=== PATIENT | female | born 1980 | race Hispanic/Latino ===

== ENCOUNTER 2019-01-30 17:42 | Emergency (ER) | payer BC, SELFPAY ==
[2019-01-30 19:39] LABS: Absolute Lymphocytes (CBC) 1.6 K/uL (0.7-4.9); Basophils % 0.3 % (0-1.3); Eosinophils % 0.2 % (0-4.4); Hematocrit 39.7 % (36.0-45.0); Lymphocytes % 18.3 % (15.3-44.8); Monocytes % 6.2 % (3.3-12.3); RBC Red Blood Cell Count 4.52 M/uL (3.86-4.86)
[2019-01-30 19:48] LABS: Urine Blood 2+ (NEG); Urine Glucose NEGATIVE (NEG); Urine Protein NEGATIVE (NEG); Urine Specific Gravity 1.015 (1.005-1.030); Urine pH 6.5 (5.0-7.0)
[2019-01-30 19:49] LABS: Barbiturates NEGATIVE (NEGATIVE); Benzodiazepines NEGATIVE (NEGATIVE); Cocaine NEGATIVE (NEGATIVE); METHAMPHETAM NEGATIVE (NEGATIVE); Methadone NEGATIVE (NEGATIVE); Opiates NEGATIVE (NEGATIVE); Phencyclidine NEGATIVE (NEGATIVE); THC Cannibis POSITIVE (NEGATIVE)
[2019-01-30 19:52] LABS: Protime INR 1.04
[2019-01-30 19:53] LABS: ALT/SGPT 22 U/L (12-78); AST/SGOT 14 U/L (15-37); Albumin 4.2 g/dL (3.4-5.0); Alkaline Phosphatase 63 U/L (45-117); BUN Blood Urea Nitrogen 11 mg/dL (7-18); Bicarbonate 25 mmol/L (21-32); Bilirubin Direct 0.1 mg/dL (0-0.2); Bilirubin Total 0.3 mg/dL (0.2-1.0); Glucose Level 103 mg/dL (74-106); Potassium 3.7 mmol/L (3.5-5.1); Protein, Total 8.4 g/dL (6.4-8.2); Sodium Level 140 mmol/L (136-145)
[2019-01-30] MEDS ORDERED: LORAZEPAM 1 MG TABLET ONE (20:19)
--- NOTE | 2019-01-30 20:28 | EDPHYS ---
Physician Documentation [facility] Name: Rosetta Aranda Age: 38 yrs Sex: Female : 1980 Arrival Date: 01/30/2019 Time: 17:45 Bed 16 Private MD: ED Physician Zack Mueller HPI: 01/30 18:26 This 38 yrs old Female presents to ER via Ambulatory with complaints of pm1 Weakness. 18:26 The patient presents to the emergency department with weakness of the entire body, pm1 generalized weakness. Onset: The symptoms/episode began/occurred 3 day(s) ago. Context: occurred at home, occurred while the patient was Increase in anxiety. Patient has stopped taking her medications for anxiety for the past two years and now for the past three days she feels that is unbearable and incapacitating . Associated signs and symptoms: Pertinent positives: bodyaches, Pertinent negatives: altered mental status, fever, headache, nausea, vomiting, diarrhea. Severity of symptoms: in the emergency department the symptoms are worse. Current symptoms: anxiety. The patient has experienced similar episodes in the past, chronically, but today's symptoms are worse. The patient has not recently seen a physician, stopped seeing her psychiatrist for two years. Patient symptoms resolve with the use of marijuana. Historical: - Allergies: 17:57 Trazodone; ss - PMHx: 17:57 Bipolar disorder; Fibromyalgia; Anxiety; ss - PSHx: 17:57 Tubal ligation; ss - Immunization history:: Adult Immunizations up to date. - Social history:: Smoking status: Patient/guardian denies using tobacco, Patient uses street drugs, marijuana. - Ebola Screening: : Patient denies exposure to infectious person Patient denies travel to an Ebola-affected area in the 21 days before illness onset. ROS: 18:26 Constitutional: Negative for fever, chills, and weight loss, Eyes: Negative for injury, pm1 pain, redness, and discharge, ENT: Negative for injury, pain, and discharge, Neck: Negative for injury, pain, and swelling, Cardiovascular: Negative for chest pain, palpitations, and edema, Respiratory: Negative for shortness of breath, cough, wheezing, and pleuritic chest pain, Abdomen/GI: Negative for abdominal pain, nausea, vomiting, diarrhea, and constipation, Back: Negative for injury and pain, : Negative for injury, bleeding, discharge, and swelling, MS/Extremity: Negative for injury and deformity, Skin: Negative for injury, rash, and discoloration, Neuro: Negative for headache, weakness, numbness, tingling, and seizure. 18:26 Psych: Positive for anxiety, Negative for drug dependence, alcohol dependence, auditory hallucinations, visual hallucinations, homicidal ideation, suicide gesture, suicidal ideation. Exam: 18:26 Constitutional: This is a well developed, well nourished patient who is awake, alert, pm1 and in no acute distress. Head/Face: Normocephalic, atraumatic. Eyes: Pupils equal round and reactive to light, extra-ocular motions intact. Lids and lashes normal. Conjunctiva and sclera are non-icteric and not injected. Cornea within normal limits. Periorbital areas with no swelling, redness, or edema. ENT: Nares patent. No nasal discharge, no septal abnormalities noted. Tympanic membranes are normal and external auditory canals are clear. Oropharynx with no redness, swelling, or masses, exudates, or evidence of obstruction, uvula midline. Mucous membranes moist. Neck: Trachea midline, no thyromegaly or masses palpated, and no cervical lymphadenopathy. Supple, full range of motion without nuchal rigidity, or vertebral point tenderness. No Meningismus. Chest/axilla: Normal chest wall appearance and motion. Nontender with no deformity. No lesions are appreciated. Cardiovascular: Regular rate and rhythm with a normal S1 and S2. No gallops, murmurs, or rubs. Normal PMI, no JVD. No pulse deficits. Respiratory: Lungs have equal breath sounds bilaterally, clear to auscultation and percussion. No rales, rhonchi or wheezes noted. No increased work of breathing, no retractions or nasal flaring. Abdomen/GI: Soft, non-tender, with normal bowel sounds. No distension or tympany. No guarding or rebound. No evidence of tenderness throughout. Back: No spinal tenderness. No costovertebral tenderness. Full range of motion. Skin: Warm, dry with normal turgor. Normal color with no rashes, no lesions, and no evidence of cellulitis. MS/ Extremity: Pulses equal, no cyanosis. Neurovascular intact. Full, normal range of motion. 18:26 Neuro: Orientation: is normal, Motor: is normal, moves all fours, Sensation: is normal, no obvious gross deficits. 18:26 Psych: Behavior/mood is anxious, Affect is animated, Oriented to person, place, time, Patient has no thoughts/intents to harm self or others. Delusions/hallucinations are not present. Vital Signs: 17:57 BP 155 / 91; Pulse 88; Resp 16; Temp 97.4(TE); Pulse Ox 100% on R/A; Weight 92.99 kg; ss Height 5 ft. 6 in. (167.64 cm); 19:30 BP 152 / 94; Pulse 76; Resp 18; Pulse Ox 97% on R/A; ea 20:30 BP 150 / 90; Pulse 78; Resp 18; Temp 97.8; Pulse Ox 98% on R/A; ea 17:57 Body Mass Index 33.09 (92.99 kg, 167.64 cm) ss MDM: 18:07 Patient medically screened. pm1 20:26 Data reviewed: vital signs. Data interpreted: Pulse oximetry: on room air is 97 %. pm1 Interpretation: normal. Counseling: I had a detailed discussion with the patient and/or guardian regarding: the historical points, exam findings, and any diagnostic results supporting the discharge/admit diagnosis, lab results, the need for outpatient follow up, for definitive care, a family practitioner, a psychiatrist, to return to the emergency department if symptoms worsen or persist or if there are any questions or concerns that arise at home. 01/30 18:25 Order name: Acetaminophen pm1 01/30 18:25 Order name: Basic Metabolic Panel; Complete Time: 19:55 pm01/30 18:25 Order name: CBC with Diff; Complete Time: 19:50 pm01/30 18:25 Order name: ETOH Level; Complete Time: 19:55 pm01/30 18:25 Order name: Hepatic Function; Complete Time: 19:55 pm01/30 18:25 Order name: PT-INR; Complete Time: 20:26 pm01/30 18:25 Order name: Ptt, Activated; Complete Time: 20:26 pm01/30 18:25 Order name: Salicylate; Complete Time: 19:55 pm01/30 18:25 Order name: Urine Drug Screen; Complete Time: 19:55 pm01/30 18:25 Order name: Flu; Complete Time: 20:26 pm1 01/30 18:26 Order name: Acetaminophen Level; Complete Time: 19:55 EDMS 01/30 19:34 Order name: Urine Dipstick--Ancillary (enter results); Complete Time: 19:50 mw2 01/30 19:34 Order name: Urine --Ancillary (enter results); Complete Time: 19:50 mw2 01/30 18:25 Order name: Urine Test (obtain specimen) pm1 01/30 18:25 Order name: EKG; Complete Time: 18:26 pm1 01/30 18:25 Order name: EKG - Nurse/Tech; Complete Time: 19:34 pm1 01/30 18:25 Order name: IV Saline Lock; Complete Time: 19:34 pm1 01/30 18:25 Order name: Labs collected and sent; Complete Time: 19:34 pm1 01/30 18:25 Order name: Urine Dipstick-Ancillary (obtain specimen); Complete Time: 19:34 pm1 Administered Medications: 20:08 Drug: Ativan 1 mg Route: PO; ea 20:30 Follow up: Response: Anxiety decreased ea Disposition: 01/30/19 20:27 Discharged to Home. Impression: Anxiety disorder, unspecified, Weakness. - Condition is Stable. - Discharge Instructions: Weakness, Generalized Anxiety Disorder. - Prescriptions for Valium 2 mg Oral Tablet - take 1 tablet by ORAL route every 8 hours As needed; 10 tablet. - Medication Reconciliation Form, Thank You Letter, Antibiotic Education, Prescription Opioid Use form. - Follow up: Emergency Department; When: As needed; Reason: Worsening of condition. Follow up: Private Physician; When: 2 - 3 days; Reason: Recheck today's complaints, Continuance of care, Re-evaluation by your physician. - Problem is new. - Symptoms have improved. Addendum: 02/01/2019 04:32 Co-signature as Attending Physician, Zack Mueller MD. g s Signatures: Dispatcher [employer] EDIL Karla Ramirez RN RN Rakesh Prieto, BRINDA PRIMARY EDUCATION PROFESSOR pm1 Payton Hough RN RN ea Starr, Gregory, MD MD gs Corrections: (The following items were deleted from the chart) 01/30 20:46 20:27 01/30/2019 20:27 Discharged to Home. Impression: Anxiety disorder, unspecified; ea Weakness. Condition is Stable. Forms are Medication Reconciliation Form, Thank You Letter, Antibiotic Education, Prescription Opioid Use. Follow up: Emergency Department; When: As needed; Reason: Worsening of condition. Follow up: Private Physician; When: 2 - 3 days; Reason: Recheck today's complaints, Continuance of care, Re-evaluation by your physician. Problem is new. Symptoms have improved. pm1
--- NOTE | 2019-01-30 20:28 | ER ---
Nurse's Notes [facility] Name: Rosetta Aranda Age: 38 yrs Sex: Female : 1980 Arrival Date: 01/30/2019 Time: 17:45 Bed 16 Private MD: Diagnosis: Anxiety disorder, unspecified;Weakness Presentation: 01/30 17:56 Presenting complaint: Patient states: Anxiety, chills and muscle weakness x 2-3 days. ss Pt reports symptoms became much worse today. Transition of care: patient was not received from another setting of care. Onset of symptoms is unknown. Risk Assessment: Do you want to hurt yourself or someone else? Patient reports no desire to harm self or others. Initial Sepsis Screen: Does the patient meet any 2 criteria? No. Patient's initial sepsis screen is negative. Does the patient have a suspected source of infection? No. Patient's initial sepsis screen is negative. Care prior to arrival: None. 17:56 Method Of Arrival: Ambulatory ss 17:56 Acuity: TYREE 3 ss Historical: - Allergies: 17:57 Trazodone; ss - PMHx: 17:57 Bipolar disorder; Fibromyalgia; Anxiety; ss - PSHx: 17:57 Tubal ligation; ss - Immunization history:: Adult Immunizations up to date. - Social history:: Smoking status: Patient/guardian denies using tobacco, Patient uses street drugs, marijuana. - Ebola Screening: : Patient denies exposure to infectious person Patient denies travel to an Ebola-affected area in the 21 days before illness onset. Screenin:35 Abuse screen: Denies threats or abuse. Nutritional screening: No deficits noted. ea Tuberculosis screening: No symptoms or risk factors identified. Fall Risk None identified. Assessment: 19:35 General: Appears in no apparent distress. Behavior is calm, cooperative, appropriate ea for age. Pain: Denies pain. Neuro: Level of Consciousness is awake, alert, obeys commands, Oriented to person, place, time, situation, Moves all extremities. Speech is normal, Pt reports generalized weakness. Cardiovascular: Patient's skin is warm and dry. Respiratory: Airway is patent Respiratory effort is even, unlabored, Respiratory pattern is regular, symmetrical, Breath sounds are clear bilaterally. GI: Abdomen is non-distended. Derm: Skin is pink, warm \T\ dry. 20:43 Reassessment: Patient and/or family updated on plan of care and expected duration. Pain ea level reassessed. Patient is alert, oriented x 3, equal unlabored respirations, skin warm/dry/pink. Discharge instruction given to patient, verbalized the understanding of instruction. Pt left ambulatory accompanied by significant other. Pt tolerating well Patient denies pain at this time. Patient states feeling better. Patient states symptoms have improved. Vital Signs: 17:57 BP 155 / 91; Pulse 88; Resp 16; Temp 97.4(TE); Pulse Ox 100% on R/A; Weight 92.99 kg; Height 5 ft. 6 in. (167.64 cm); 19:30 BP 152 / 94; Pulse 76; Resp 18; Pulse Ox 97% on R/A; ea 20:30 BP 150 / 90; Pulse 78; Resp 18; Temp 97.8; Pulse Ox 98% on R/A; ea 17:57 Body Mass Index 33.09 (92.99 kg, 167.64 cm) ED Course: 17:45 Patient arrived in ED. as 17:53 Paula Mir, RN is Primary Nurse. aj1 17:56 Triage completed. ss 17:57 Arm band placed on left wrist. ss 18:07 Rakesh Boo NP is PHCP. pm1 18:07 Zack Mueller MD is Attending Physician. pm1 19:34 EKG done, by ED staff. ea 19:35 Patient has correct armband on for positive identification. Bed in low position. Call ea light in reach. Side rails up X 1. 20:40 IV discontinued, intact, bleeding controlled, No redness/swelling at site. Pressure ea dressing applied. 20:44 No provider procedures requiring assistance completed. ea Administered Medications: 20:08 Drug: Ativan 1 mg Route: PO; ea 20:30 Follow up: Response: Anxiety decreased ea Outcome: 20:27 Discharge ordered by . pm1 20:45 Discharged to home ambulatory, with significant other. ea 20:45 Condition: improved 20:45 Discharge instructions given to patient, Instructed on discharge instructions, follow up and referral plans. medication usage, Demonstrated understanding of instructions, follow-up care, medications. 20:46 Patient left the ED. ea Signatures: Paula Mir, CELIA RN aj1 April Ibanez Shelby, RN RN ss Rakesh Boo, MAIL ORDER CLERK MAIL ORDER CLERK pm1 Payton Hough, RN RN ea
[2019-01-30 23:30] VITALS: BP 150/90; TEMP 97.8; O2SAT 98
--- NOTE | 2019-01-31 09:54 | EKG ---
Test Date: 2019-01-30 Test Time: 19:26:09 Director Search: JOSUE MEASUREMENT RESULTS: Intervals: Rate: 78 SD: 168 QRSD: 78 QT: 382 QTc: 435 [place]: P: 46 SD: 168 QRS: 4 T: 22 INTERPRETIVE STATEMENTS: Normal sinus rhythm Normal ECG Compared to ECG 05/25/2016 18:00:33 No significant changes Electronically Signed On 01-31-19 09:54:19 CDT by Ricardo Garcia
== END 2019-01-30 20:46 | disposition home or self-care (01) ==
LOC: ER 17:42
DX: F41.9 Anxiety disorder, unspecified (principal); F31.9 Bipolar disorder, unspecified; Z88.5 Allergy status to narcotic agent
CPT/HCPCS: 36415; 80048; 80076; 80307; 80320; 80329; 81003; 81025; 85025; 85610; 85730; 87804; 93005; 99283

== ENCOUNTER 2019-02-08 09:35 | Emergency (ER) | payer BC ==
[2019-02-08] MEDS ORDERED: cloNIDine HCl 0.1 MG TAB ONE (10:24)
--- NOTE | 2019-02-08 10:35 | RAD REPORT ---
EXAM DESCRIPTION: CT - Head Brain Wo Cont - 02/08/2019 10:16 am CLINICAL HISTORY: Dizziness, transient alteration of awareness COMPARISON: CT head May 2016 TECHNIQUE: Axial 5 mm thick images of the head were obtained without IV contrast. All CT scans are performed using dose optimization technique as appropriate and may include automated exposure control or mA/KV adjustment according to patient size. FINDINGS: No intracranial hemorrhage, mass, edema or shift of mid-line structures. No acute infarcti on changes seen. No abnormal extra-axial fluid collections. Ventricles are normal. Mastoid air cells and visualized portions of the paranasal sinuses are clear. No acute bony findings. No significant change comparison. IMPRESSION: Negative non-contrast CT head examination.
[2019-02-08 10:49] LABS: Absolute Lymphocytes (CBC) 1.3 K/uL (0.7-4.9); Basophils % 0.6 % (0-1.3); Eosinophils % 0.4 % (0-4.4); Hematocrit 40.7 % (36.0-45.0); Lymphocytes % 24.9 % (15.3-44.8); MPV 8.2 fL (7.6-11.3); Monocytes % 6.8 % (3.3-12.3); RBC Red Blood Cell Count 4.63 M/uL (3.86-4.86)
[2019-02-08 11:01] LABS: BUN Blood Urea Nitrogen 10 mg/dL (7-18); Bicarbonate 28 mmol/L (21-32); Glucose Level 132 mg/dL (74-106); Magnesium 2.4 mg/dL (1.8-2.4); Potassium 3.5 mmol/L (3.5-5.1); Sodium Level 142 mmol/L (136-145); Troponin (Emerg Dept Use Only) < 0.02 ng/mL (0.0-0.045)
--- NOTE | 2019-02-08 11:18 | EDPHYS ---
Physician Documentation [facility] Name: Rosetta Aranda Age: 38 yrs Sex: Female : 1980 Arrival Date: 02/08/2019 Time: 09:38 Bed 23 Private MD: ED Physician Yeimi Sandoval HPI: 02/08 11:14 This 38 yrs old Female presents to ER via Ambulatory with complaints of Ear kb Pain, Diarrhea, Weakness. 11:18 The patient presents to the emergency department with nausea, vomiting, diarrhea. kb 11:18 Onset: The symptoms/episode began/occurred 1 week(s) ago. Possible causes: unknown. The kb symptoms are aggravated by nothing. The symptoms are alleviated by nothing. Associated signs and symptoms: Pertinent positives: diarrhea, nausea, vomiting, lightheadedness, weakness, ear pressure. Severity of symptoms: At their worst the symptoms were moderate in the emergency department the symptoms are unchanged. The patient has not experienced similar symptoms in the past. The patient has not recently seen a physician. Pt reports intermittent n/v/d, ear pressure, lightheadedness and weakness for a week. States she feels like her BP is up. Has a history of HTN and used to take medications for it, but stopped taking them a long time ago.. [employer]: 10:06 LMP N/A - control method hj Historical: - Allergies: 10:05 Trazodone; hj - PMHx: 10:05 Anxiety; Bipolar disorder; Fibromyalgia; hj - PSHx: 10:05 Tubal ligation; hj - Immunization history:: Adult Immunizations up to date. - Social history:: Smoking status: Patient/guardian denies using tobacco, Patient/guardian denies using alcohol. - Ebola Screening: : Patient negative for fever greater than or equal to 101.5 degrees Fahrenheit, and additional compatible Ebola Virus Disease symptoms Patient denies exposure to infectious person Patient denies travel to an Ebola-affected area in the 21 days before illness onset. ROS: 11:13 Constitutional: Negative for fever, chills, and weight loss, Neck: Negative for injury, kb pain, and swelling, Cardiovascular: Negative for chest pain, palpitations, and edema, Respiratory: Negative for shortness of breath, cough, wheezing, and pleuritic chest pain, Back: Negative for injury and pain, : Negative for injury, bleeding, discharge, and swelling, MS/Extremity: Negative for injury and deformity, Skin: Negative for injury, rash, and discoloration. 11:13 ENT: Positive for ear pain. 11:13 Abdomen/GI: Positive for nausea, vomiting, and diarrhea. 11:13 Neuro: Positive for weakness, lightheadedness. Exam: 11:13 Constitutional: This is a well developed, well nourished patient who is awake, alert, kb and in no acute distress. Head/Face: Normocephalic, atraumatic. Eyes: Pupils equal round and reactive to light, extra-ocular motions intact. Lids and lashes normal. Conjunctiva and sclera are non-icteric and not injected. Cornea within normal limits. Periorbital areas with no swelling, redness, or edema. ENT: Nares patent. No nasal discharge, no septal abnormalities noted. Tympanic membranes are normal and external auditory canals are clear. Oropharynx with no redness, swelling, or masses, exudates, or evidence of obstruction, uvula midline. Mucous membranes moist. Neck: Trachea midline, no thyromegaly or masses palpated, and no cervical lymphadenopathy. Supple, full range of motion without nuchal rigidity, or vertebral point tenderness. No Meningismus. Chest/axilla: Normal chest wall appearance and motion. Nontender with no deformity. No lesions are appreciated. Cardiovascular: Regular rate and rhythm with a normal S1 and S2. No gallops, murmurs, or rubs. Normal PMI, no JVD. No pulse deficits. Respiratory: Lungs have equal breath sounds bilaterally, clear to auscultation and percussion. No rales, rhonchi or wheezes noted. No increased work of breathing, no retractions or nasal flaring. Abdomen/GI: Soft, non-tender, with normal bowel sounds. No distension or tympany. No guarding or rebound. No evidence of tenderness throughout. Skin: Warm, dry with normal turgor. Normal color with no rashes, no lesions, and no evidence of cellulitis. MS/ Extremity: Pulses equal, no cyanosis. Neurovascular intact. Full, normal range of motion. Neuro: Awake and alert, GCS 15, oriented to person, place, time, and situation. Cranial nerves II-XII grossly intact. Motor strength 5/5 in all extremities. Sensory grossly intact. Cerebellar exam normal. Normal gait. Vital Signs: 10:06 BP 151 / 109; Pulse 60; Resp 18; Temp 96.9; Pulse Ox 100% on R/A; Weight 79.38 kg; hj Height 5 ft. 6 in. (167.64 cm); Pain 0/10; 10:30 BP 128 / 82; Pulse 62; Resp 18; Pulse Ox 100% on R/A; hj 10:52 BP 115 / 84; Pulse 65; Resp 18; Pulse Ox 100% on R/A; hj 11:36 BP 104 / 77; Pulse 69; Resp 18; Pulse Ox 100% on R/A; hj 10:06 Body Mass Index 28.25 (79.38 kg, 167.64 cm) hj MDM: 09:55 Patient medically screened. kb 11:13 Data reviewed: vital signs, nurses notes. Data interpreted: Pulse oximetry: on room air kb is 100 %. Interpretation: normal. 11:17 Counseling: I had a detailed discussion with the patient and/or guardian regarding: the kb historical points, exam findings, and any diagnostic results supporting the discharge/admit diagnosis, lab results, radiology results, the need for outpatient follow up, a family practitioner, to return to the emergency department if symptoms worsen or persist or if there are any questions or concerns that arise at home. 02/08 10:04 Order name: Basic Metabolic Panel; Complete Time: 11:04 kb 02/08 10:04 Order name: CBC with Diff; Complete Time: 11:04 kb 02/08 10:04 Order name: Magnesium; Complete Time: 11:04 kb 02/08 10:04 Order name: Troponin (emerg Dept Use Only); Complete Time: 11:04 kb 02/08 10:04 Order name: CT Head Brain wo Cont; Complete Time: 10:36 kb 02/08 10:04 Order name: EKG; Complete Time: 10:06 kb 02/08 10:04 Order name: EKG - Nurse/Tech; Complete Time: 10:26 kb 02/08 10:04 Order name: IV Saline Lock; Complete Time: 10:37 kb 02/08 10:04 Order name: Labs collected and sent; Complete Time: 10:37 kb Administered Medications: 10:07 Drug: cloNIDine 0.1 mg Route: PO; hj 10:37 Follow up: Response: No adverse reaction; Blood pressure is lowered hj Disposition: 02/08/19 11:17 Discharged to Home. Impression: Essential (primary) hypertension, Nausea and vomiting, Diarrhea, unspecified. - Condition is Stable. - Discharge Instructions: Nausea and Vomiting, Adult, [id number], Hypertension, [id number], Diarrhea, Adult, [id number]. - Medication Reconciliation Form, Thank You Letter, Antibiotic Education, Prescription Opioid Use form. - Follow up: Private Physician; When: 2 - 3 days; Reason: Recheck today's complaints, Continuance of care, Re-evaluation by your physician. Follow up: Emergency Department; When: As needed; Reason: Worsening of condition. Addendum: 02/12/2019 02:14 Co-signature as Attending Physician, Yeimi Sandoval MD. m a2 Signatures: Dispatcher [employer] EDMS Angeline Terrell FNP-C FNP-Ckb Joaquin, Henry, RN RN hj Alzahri, Mohammad, MD MD ma2 Corrections: (The following items were deleted from the chart) 02/08 11:18 11:17 02/08/2019 11:17 Discharged to Home. Impression: Essential (primary) kb hypertension. Condition is Stable. Forms are Medication Reconciliation Form, Thank You Letter, Antibiotic Education, Prescription Opioid Use. Follow up: Private Physician; When: 2 - 3 days; Reason: Recheck today's complaints, Continuance of care, Re-evaluation by your physician. Follow up: Emergency Department; When: As needed; Reason: Worsening of condition. kb 11:41 11:18 02/08/2019 11:17 Discharged to Home. Impression: Essential (primary) hj hypertension; Nausea and vomiting; Diarrhea, unspecified. Condition is Stable. Discharge Instructions: Hypertension, [id number]. Forms are Medication Reconciliation Form, Thank You Letter, Antibiotic Education, Prescription Opioid Use. Follow up: Private Physician; When: 2 - 3 days; Reason: Recheck today's complaints, Continuance of care, Re-evaluation by your physician. Follow up: Emergency Department; When: As needed; Reason: Worsening of condition. kb
--- NOTE | 2019-02-08 11:18 | ER ---
Nurse's Notes [facility] Name: Rosetta Aranda Age: 38 yrs Sex: Female : 1980 Arrival Date: 02/08/2019 Time: 09:38 Bed 23 Private MD: Diagnosis: Essential (primary) hypertension;Nausea and vomiting;Diarrhea, unspecified Presentation: 02/08 10:01 Presenting complaint: Patient states: last week i was here for anxiety disorder and now hj i still have this cold sweats, N/V, diarrhea; denies abd pain; denies fever;. Transition of care: patient was not received from another setting of care. Onset of symptoms was February 08, 2019. Risk Assessment: Do you want to hurt yourself or someone else? Patient reports no desire to harm self or others. Initial Sepsis Screen: Does the patient meet any 2 criteria? No. Patient's initial sepsis screen is negative. Does the patient have a suspected source of infection? No. Patient's initial sepsis screen is negative. Care prior to arrival: None. 10:01 Method Of Arrival: Ambulatory 10:01 Acuity: TYREE 3 hj Triage Assessment: 10:13 General: Appears in no apparent distress. uncomfortable, Behavior is cooperative, hj appropriate for age, anxious. Pain: Denies pain. EENT: Reports pain. 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 - Social history:: Smoking status: Patient/guardian denies using tobacco, Patient/guardian denies using alcohol. - Ebola Screening: : Patient negative for fever greater than or equal to 101.5 degrees Fahrenheit, and additional compatible Ebola Virus Disease symptoms Patient denies exposure to infectious person Patient denies travel to an Ebola-affected area in the 21 days before illness onset. Screenin:08 Abuse screen: Denies threats or abuse. Denies injuries from another. Nutritional hj screening: No deficits noted. Tuberculosis screening: No symptoms or risk factors identified. Fall Risk None identified. Assessment: 10:07 General: Behavior is anxious. General: Appears in no apparent distress. uncomfortable, hj Behavior is cooperative, appropriate for age, anxious. Pain: Complains of pain in head, ear. Neuro: Level of Consciousness is awake, alert, obeys commands, Oriented to person, place, time, situation, Appropriate for age. Cardiovascular: Capillary refill < 3 seconds Patient's skin is warm and dry. Respiratory: Airway is patent Respiratory effort is even, unlabored, Respiratory pattern is regular, symmetrical. GI: No signs and/or symptoms were reported involving the gastrointestinal system. : No signs and/or symptoms were reported regarding the genitourinary system. EENT: No signs and/or symptoms were reported regarding the EENT system. Derm: No signs and/or symptoms reported regarding the dermatologic system. Musculoskeletal: No signs and/or symptoms reported regarding the musculoskeletal system. 11:36 Reassessment: Patient and/or family updated on plan of care and expected duration. Pain hj level reassessed. Patient is alert, oriented x 3, equal unlabored respirations, skin warm/dry/pink. Patient states feeling better. Patient states symptoms have improved. Vital Signs: 10:06 BP 151 / 109; Pulse 60; Resp 18; Temp 96.9; Pulse Ox 100% on R/A; Weight 79.38 kg; hj Height 5 ft. 6 in. (167.64 cm); Pain 0/10; 10:30 BP 128 / 82; Pulse 62; Resp 18; Pulse Ox 100% on R/A; hj 10:52 BP 115 / 84; Pulse 65; Resp 18; Pulse Ox 100% on R/A; hj 11:36 BP 104 / 77; Pulse 69; Resp 18; Pulse Ox 100% on R/A; hj 10:06 Body Mass Index 28.25 (79.38 kg, 167.64 cm) hj ED Course: 09:38 Patient arrived in ED. rg4 09:54 Angeline Terrell FNP-C [facility]. kb 09:54 Yeimi Sandoval MD is Attending Physician. kb 10:01 Iron Newberry, CELAI is Primary Nurse. hj 10:05 Triage completed. hj 10:07 Arm band placed on right wrist. hj 10:13 Patient has correct armband on for positive identification. Placed in gown. Bed in low hj position. Call light in reach. Side rails up X 1. Adult w/ patient. 10:17 CT Head Brain wo Cont In Process Unspecified. EDMS 10:25 EKG done, by ED staff, reviewed by Angeline CARVALHO. jbDeniz 10:33 Initial lab(s) drawn, by me, sent to lab. Inserted saline lock: 22 gauge in right hj antecubital area, using aseptic technique. Blood collected. 11:35 No provider procedures requiring assistance completed. IV discontinued, intact, hj bleeding controlled, No redness/swelling at site. Pressure dressing applied. Administered Medications: 10:07 Drug: cloNIDine 0.1 mg Route: PO; 10:37 Follow up: Response: No adverse reaction; Blood pressure is lowered Outcome: 11:17 Discharge ordered by . jayden 11:35 Discharged to home ambulatory, with family. 11:35 Condition: stable 11:35 Discharge instructions given to patient, family, Instructed on discharge instructions, follow up and referral plans. Demonstrated understanding of instructions, follow-up care. 11:41 Patient left the ED. Signatures: Dispatcher [employer] EDIA Gomez Mabry [email or web address] Angeline Terrell, DEVEN ARTEAGAP-Iron Barton, RN RN Bobbi Wilkerson rg4
[2019-02-08 11:55] VITALS: TEMP 96.9; O2SAT 100
[2019-02-08 12:01] VITALS: BP 104/77
--- NOTE | 2019-02-09 12:54 | EKG ---
Test Date: 2019-02-08 Test Time: 10:23:17 Event Technician: CORINNE MEASUREMENT RESULTS: Intervals: Rate: 57 ID: [id number] QRSD: 86 QT: 402 QTc: 391 [place]: P: 49 ID: [id number] QRS: 18 T: 56 INTERPRETIVE STATEMENTS: Sinus bradycardia Otherwise normal ECG Compared to ECG 01/30/2019 19:26:09 Sinus rhythm no longer present Electronically Signed On 02-09-19 12:50:01 CDT by Dustin Landin
== END 2019-02-08 11:41 | disposition home or self-care (01) ==
LOC: ER 09:35
DX: I10 Essential (primary) hypertension (principal); R11.2 Nausea with vomiting, unspecified; R19.7 Diarrhea, unspecified; F41.9 Anxiety disorder, unspecified; F31.9 Bipolar disorder, unspecified
CPT/HCPCS: 36415; 70450; 80048; 83735; 84484; 85025; 93005; 99284

== ENCOUNTER 2019-02-08 15:59 | Emergency (ER) | payer BC ==
--- NOTE | 2019-02-08 16:54 | EDPHYS ---
Physician Documentation [facility] Name: Rosetta Aranda Age: 38 yrs Sex: Female : 1980 Arrival Date: 02/08/2019 Time: 16:03 Bed 7 Private MD: ED Physician Yeimi Sandoval HPI: 02/08 17:10 This 38 yrs old Female presents to ER via Wheelchair with complaints of snw Numbness Of Arm, High Blood Pressure, Weakness. 17:10 The patient has elevated blood pressure and discovered this at home. Modifying factors: snw The symptoms are aggravated by activity. Associated signs and symptoms: Pertinent positives: lightheadedness, visual changes, numbness. Severity of symptoms: At its worst the blood pressure was moderate. The patient has experienced similar episodes in the past. The patient has been recently seen at the [facility] Emergency Department, today, for similar complaints labs were performed, CT scan was performed. pt states s/s intermittent in "waves" all week, saw Psych and was prescribed multiple medications (Propranolol, lexapro, ativan, zyprexa) one week ago. When inference drawn to timeframe of meds and symptoms, pt states she is not taking medications as prescribed. Encouraged to take comfort in fact of vss, labs wnl, and CT negative, and keep log and f/u PCP/Psych. Pt reminded that there is no magic pill or workup that will make her immediately feel different. 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 - Ebola Screening: : Patient negative for fever greater than or equal to 101.5 degrees Fahrenheit, and additional compatible Ebola Virus Disease symptoms Patient denies exposure to infectious person Patient denies travel to an Ebola-affected area in the 21 days before illness onset No symptoms or risks identified at this time. - Social history:: Smoking status: Patient/guardian denies using tobacco. ROS: 17:00 Eyes: Negative for injury, pain, redness, and discharge, ENT: Negative for injury, snw pain, and discharge, Neck: Negative for injury, pain, and swelling, Cardiovascular: Negative for chest pain, palpitations, and edema, Respiratory: Negative for shortness of breath, cough, wheezing, and pleuritic chest pain, Abdomen/GI: Negative for abdominal pain, nausea, vomiting, diarrhea, and constipation, Back: Negative for injury and pain, : Negative for injury, bleeding, discharge, and swelling. 17:00 MS/Extremity: Negative for injury and deformity, Skin: Negative for injury, rash, and discoloration. 17:00 Constitutional: Positive for body aches, numbness, tingling. 17:00 Neuro: Positive for altered mental status, numbness, visual changes, weakness. 17:00 Psych: Positive for anxiety. Exam: 16:58 Constitutional: This is a well developed, well nourished patient who is awake, alert, snw and in no acute distress. Head/Face: Normocephalic, atraumatic. Eyes: Pupils equal round and reactive to light, extra-ocular motions intact. Lids and lashes normal. Conjunctiva and sclera are non-icteric and not injected. Cornea within normal limits. Periorbital areas with no swelling, redness, or edema. ENT: Nares patent. No nasal discharge, no septal abnormalities noted. Tympanic membranes are normal and external auditory canals are clear. Oropharynx with no redness, swelling, or masses, exudates, or evidence of obstruction, uvula midline. Mucous membranes moist. Neck: Trachea midline, no thyromegaly or masses palpated, and no cervical lymphadenopathy. Supple, full range of motion without nuchal rigidity, or vertebral point tenderness. No Meningismus. Chest/axilla: Normal chest wall appearance and motion. Nontender with no deformity. No lesions are appreciated. Cardiovascular: Regular rate and rhythm with a normal S1 and S2. No gallops, murmurs, or rubs. Normal PMI, no JVD. No pulse deficits. Respiratory: Lungs have equal breath sounds bilaterally, clear to auscultation and percussion. No rales, rhonchi or wheezes noted. No increased work of breathing, no retractions or nasal flaring. Abdomen/GI: Soft, non-tender, with normal bowel sounds. No distension or tympany. No guarding or rebound. No evidence of tenderness throughout. Back: No spinal tenderness. No costovertebral tenderness. Full range of motion. Skin: Warm, dry with normal turgor. Normal color with no rashes, no lesions, and no evidence of cellulitis. MS/ Extremity: Pulses equal, no cyanosis. Neurovascular intact. Full, normal range of motion. Neuro: Awake and alert, GCS 15, oriented to person, place, time, and situation. Cranial nerves II-XII grossly intact. Motor strength 5/5 in all extremities. Sensory grossly intact. Cerebellar exam normal. Normal gait. 16:58 Psych: Behavior/mood is pleasant, anxious, Affect is animated, Oriented to person, place, time, Patient has no thoughts/intents to harm self or others. Vital Signs: 16:29 BP 150 / 85; Pulse 63; Resp 16; Pulse Ox 100% on R/A; Weight 90.72 kg; Height 5 ft. 6 iw in. (167.64 cm); 16:29 Body Mass Index 32.28 (90.72 kg, 167.64 cm) iw MDM: 16:18 Patient medically screened. snw 16:56 Data reviewed: vital signs, nurses notes. Data interpreted: Pulse oximetry: on room air snw is 100 %. Interpretation: normal. Counseling: I had a detailed discussion with the patient and/or guardian regarding: the historical points, exam findings, and any diagnostic results supporting the discharge/admit diagnosis, the presence of at least one elevated blood pressure reading (>120/80) during this emergency department visit, the need for outpatient follow up, for definitive care, to return to the emergency department if symptoms worsen or persist or if there are any questions or concerns that arise at home. Response to treatment: the patient's symptoms have mildly improved after treatment. Special discussion: I have referred the patient to see his PCP for further evaluation of high blood pressure. Based on the history and exam findings, there is no indication for further emergent testing or inpatient evaluation. I discussed with the patient/guardian the need to see the primary care provider for further evaluation of the symptoms. I discussed with the patient/guardian the need to see the psychiatrist for further evaluation of the symptoms. Administered Medications: No medications were administered Disposition: 18:57 Co-signature as Attending Physician, Yeimi Sandoval MD. ma2 Disposition: 02/08/19 16:47 Discharged to Home. Impression: Adjustment disorder, unspecified. - Condition is Stable. - Medication Reconciliation Form, Thank You Letter, Antibiotic Education, Prescription Opioid Use form. - Follow up: Private Physician; When: 2 - 3 days; Reason: Recheck today's complaints, Continuance of care, Re-evaluation by your physician. Follow up: Emergency Department; When: As needed; Reason: Worsening of condition. Signatures: Cori Aragon, METER SHOP SUPERINTENDENT-C METER SHOP SUPERINTENDENT-Csnw Velma Lucio RN RN iw Vipul Rico RN RN bp Yeimi Snadoval MD MD mi2 Corrections: (The following items were deleted from the chart) 16:56 16:47 02/08/2019 16:47 Discharged to Home. Impression: Adjustment disorder, bp unspecified. Condition is Stable. Forms are Medication Reconciliation Form, Thank You Letter, Antibiotic Education, Prescription Opioid Use. Follow up: Private Physician; When: 2 - 3 days; Reason: Recheck today's complaints, Continuance of care, Re-evaluation by your physician. Follow up: Emergency Department; When: As needed; Reason: Worsening of condition. snw
--- NOTE | 2019-02-08 16:54 | ER ---
Nurse's Notes [facility] Name: Rosetta Aranda Age: 38 yrs Sex: Female : 1980 Arrival Date: 02/08/2019 Time: 16:03 Bed 7 Private MD: Diagnosis: Adjustment disorder, unspecified Presentation: 02/08 16:27 Presenting complaint: Patient states: was seen here earlier today for high blood iw pressure, pt states she went home and started feeling bad again, c/o dizziness, head pressure, ear pressure, shoulder tightness, left arm numbness, symptoms have been intermittent X 1 week, feet and hands feel clammy all the time, also has hx of anxiety but this feels different. Transition of care: patient was not received from another setting of care. Onset of symptoms was February 02, 2019. Risk Assessment: Do you want to hurt yourself or someone else? Patient reports no desire to harm self or others. Initial Sepsis Screen: Does the patient meet any 2 criteria? No. Patient's initial sepsis screen is negative. Does the patient have a suspected source of infection? No. Patient's initial sepsis screen is negative. Care prior to arrival: None. 16:27 Method Of Arrival: Wheelchair iw 16:27 Acuity: TYREE 3 iw Triage Assessment: 16:30 General: Appears in no apparent distress. comfortable, Behavior is cooperative, bp appropriate for age, anxious. Pain: Denies pain. EENT: No deficits noted. Neuro: No deficits noted. Cardiovascular: No deficits noted. Respiratory: No deficits noted. GI: No signs and/or symptoms were reported involving the gastrointestinal system. : No signs and/or symptoms were reported regarding the genitourinary system. Derm: No deficits noted. Musculoskeletal: No deficits noted. 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 - Ebola Screening: : Patient negative for fever greater than or equal to 101.5 degrees Fahrenheit, and additional compatible Ebola Virus Disease symptoms Patient denies exposure to infectious person Patient denies travel to an Ebola-affected area in the 21 days before illness onset No symptoms or risks identified at this time. - Social history:: Smoking status: Patient/guardian denies using tobacco. Screenin:30 Abuse screen: Denies threats or abuse. Denies injuries from another. Nutritional bp screening: No deficits noted. Tuberculosis screening: No symptoms or risk factors identified. Fall Risk None identified. Assessment: 16:30 General: SEE TRIAGE NOTE. bp 16:50 Reassessment: PT D/C HOME AMBULATORY WITH FAMILY, DX WITH ADJUSTMENT D/O. bp Vital Signs: 16:29 BP 150 / 85; Pulse 63; Resp 16; Pulse Ox 100% on R/A; Weight 90.72 kg; Height 5 ft. 6 iw in. (167.64 cm); 16:29 Body Mass Index 32.28 (90.72 kg, 167.64 cm) iw ED Course: 16:03 Patient arrived in ED. mr 16:16 Cori Aragon FNP-C is [facility]. snw 16:16 Yeimi Sandoval MD is Attending Physician. snw 16:20 Vipul Rico, RN is Primary Nurse. bp 16:29 Triage completed. iw 16:30 Arm band placed on. iw 16:30 Patient has correct armband on for positive identification. Bed in low position. Call bp light in reach. Side rails up X2. Adult w/ patient. 16:50 No provider procedures requiring assistance completed. Patient did not have IV access bp during this emergency room visit. Administered Medications: No medications were administered Outcome: 16:47 Discharge ordered by . snw 16:50 Discharged to home ambulatory, with family. bp 16:50 Condition: stable 16:50 Discharge instructions given to patient, Instructed on discharge instructions, follow up and referral plans. Demonstrated understanding of instructions, follow-up care. 16:56 Patient left the ED. bp Signatures: Cori Aragon FNP-C FNP-Wiliam Maryann Murphy Velma Draper, RN RN iw Vipul Rico, CELIA RN bp
[2019-02-08 17:08] VITALS: BP 150/85; O2SAT 100
== END 2019-02-08 16:56 | disposition home or self-care (01) ==
LOC: ER 15:59
DX: F43.20 Adjustment disorder, unspecified (principal); F41.9 Anxiety disorder, unspecified; F31.9 Bipolar disorder, unspecified
CPT/HCPCS: 99281

== ENCOUNTER 2019-05-07 15:51 | Emergency (ER) | payer BC ==
[2019-05-07] MEDS ORDERED: NA CHLORIDE 0.9% 1,000 ML ONE (16:33)
[2019-05-07 17:01] LABS: Basophils % 0.6 % (0-1.3); Hematocrit 42.5 % (36.0-45.0); Lymphocytes % 26.2 % (15.3-44.8); MPV 7.8 fL (7.6-11.3); RBC Red Blood Cell Count 4.74 M/uL (3.86-4.86)
[2019-05-07 17:09] LABS: Barbiturates NEGATIVE (NEGATIVE); Benzodiazepines NEGATIVE (NEGATIVE); Cocaine NEGATIVE (NEGATIVE); METHAMPHETAM NEGATIVE (NEGATIVE); Methadone NEGATIVE (NEGATIVE); Opiates NEGATIVE (NEGATIVE); Phencyclidine NEGATIVE (NEGATIVE); THC Cannibis POSITIVE (NEGATIVE)
[2019-05-07 17:24] LABS: ALT/SGPT 18 U/L (12-78); AST/SGOT 12 U/L (15-37); Albumin 4.4 g/dL (3.4-5.0); Alkaline Phosphatase 71 U/L (45-117); BUN Blood Urea Nitrogen 7 mg/dL (7-18); Bicarbonate 27 mmol/L (21-32); Bilirubin Direct 0.1 mg/dL (0-0.2); Bilirubin Total 0.5 mg/dL (0.2-1.0); Glucose Level 89 mg/dL (74-106); Magnesium 2.3 mg/dL (1.8-2.4); NT PRO-BNP 100 pg/mL (<125); Potassium 3.2 mmol/L (3.5-5.1); Sodium Level 139 mmol/L (136-145); Troponin (Emerg Dept Use Only) < 0.02 ng/mL (0.0-0.045)
[2019-05-07] MEDS ORDERED: AMLODIPINE 5 MG TAB ONE (17:29)
--- NOTE | 2019-05-07 17:31 | EDPHYS ---
Physician Documentation [facility] Name: Rosetta Aranda Age: 38 yrs Sex: Female : 1980 Arrival Date: 05/07/2019 Time: 15:54 Bed 27 Private MD: ED Physician Vince Bar HPI: 05/07 17:27 This 38 yrs old Female presents to ER via Ambulatory with complaints of High aldo Blood Pressure. 17:27 The patient has elevated blood pressure and discovered this at home. Onset: The aldo symptoms/episode began/occurred 1 day(s) ago. Modifying factors: The symptoms are aggravated by activity, The symptoms are alleviated by remaining still. Associated signs and symptoms: The patient has no apparent associated signs or symptoms. Severity of symptoms: At its worst the blood pressure was moderate, in the emergency department the blood pressure is unchanged. The patient has experienced similar episodes in the past, several times. Historical: - Allergies: 16:01 Trazodone; sv 16:01 LITHIUM DERIVITIVES; sv - PMHx: 16:01 Anxiety; Bipolar disorder; Fibromyalgia; Hypertension; sv - PSHx: 16:01 Tubal ligation; sv - Immunization history:: Adult Immunizations up to date. - Social history:: Smoking status: . - Ebola Screening: : No symptoms or risks identified at this time. - Family history:: not pertinent. ROS: 17:27 Constitutional: Negative for fever, chills, and weight loss, Eyes: Negative for injury, aldo pain, redness, and discharge, ENT: Negative for injury, pain, and discharge, Neck: Negative for injury, pain, and swelling, Cardiovascular: Negative for chest pain, palpitations, and edema, Respiratory: Negative for shortness of breath, cough, wheezing, and pleuritic chest pain, Abdomen/GI: Negative for abdominal pain, nausea, vomiting, diarrhea, and constipation, Back: Negative for injury and pain, : Negative for injury, bleeding, discharge, and swelling, MS/Extremity: Negative for injury and deformity, Skin: Negative for injury, rash, and discoloration, Neuro: Negative for headache, weakness, numbness, tingling, and seizure, Psych: Negative for depression, anxiety, suicide ideation, homicidal ideation, and hallucinations, Allergy/Immunology: Negative for hives, rash, and allergies, Endocrine: Negative for neck swelling, polydipsia, polyuria, polyphagia, and marked weight changes, Hematologic/Lymphatic: Negative for swollen nodes, abnormal bleeding, and unusual bruising. Exam: 17:27 Constitutional: This is a well developed, well nourished patient who is awake, alert, aldo and in no acute distress. Head/Face: Normocephalic, atraumatic. Eyes: Pupils equal round and reactive to light, extra-ocular motions intact. Lids and lashes normal. Conjunctiva and sclera are non-icteric and not injected. Cornea within normal limits. Periorbital areas with no swelling, redness, or edema. ENT: Nares patent. No nasal discharge, no septal abnormalities noted. Tympanic membranes are normal and external auditory canals are clear. Oropharynx with no redness, swelling, or masses, exudates, or evidence of obstruction, uvula midline. Mucous membranes moist. Neck: Trachea midline, no thyromegaly or masses palpated, and no cervical lymphadenopathy. Supple, full range of motion without nuchal rigidity, or vertebral point tenderness. No Meningismus. Chest/axilla: Normal chest wall appearance and motion. Nontender with no deformity. No lesions are appreciated. Cardiovascular: Regular rate and rhythm with a normal S1 and S2. No gallops, murmurs, or rubs. Normal PMI, no JVD. No pulse deficits. Respiratory: Lungs have equal breath sounds bilaterally, clear to auscultation and percussion. No rales, rhonchi or wheezes noted. No increased work of breathing, no retractions or nasal flaring. Abdomen/GI: Soft, non-tender, with normal bowel sounds. No distension or tympany. No guarding or rebound. No evidence of tenderness throughout. Back: No spinal tenderness. No costovertebral tenderness. Full range of motion. Skin: Warm, dry with normal turgor. Normal color with no rashes, no lesions, and no evidence of cellulitis. MS/ Extremity: Pulses equal, no cyanosis. Neurovascular intact. Full, normal range of motion. Neuro: Awake and alert, GCS 15, oriented to person, place, time, and situation. Cranial nerves II-XII grossly intact. Motor strength 5/5 in all extremities. Sensory grossly intact. Cerebellar exam normal. Normal gait. Psych: Awake, alert, with orientation to person, place and time. Behavior, mood, and affect are within normal limits. 17:27 Musculoskeletal/extremity: DVT Exam: No signs of deep vein thrombosis. no pain, no swelling, no tenderness, negative Homans' sign noted on exam, no appreciated bluish discoloration, no erythema, no increased warmth. Vital Signs: 16:01 BP 150 / 105; Pulse 82; Resp 16; Temp 97.5; Pulse Ox 98% ; Weight 90.72 kg; Height 5 sv ft. 6 in. (167.64 cm); 17:15 BP 138 / 86; Pulse 71; Resp 15; Pulse Ox 100% on R/A; rv 17:45 BP 154 / 94; Pulse 70; Resp 16; Pulse Ox 99% on R/A; rv 16:01 Body Mass Index 32.28 (90.72 kg, 167.64 cm) sv MDM: 16:22 Patient medically screened. [facility] 17:28 Data reviewed: vital signs, nurses notes, lab test result(s), EKG, radiologic studies, aldo plain films. 05/07 16:24 Order name: Basic Metabolic Panel; Complete Time: 17:26 [facility] 05/07 16:24 Order name: CBC with Diff; Complete Time: 17:26 [facility] 05/07 16:24 Order name: LFT's; Complete Time: 17:26 [facility] 05/07 16:24 Order name: Magnesium; Complete Time: 17:26 [facility] 05/07 16:24 Order name: NT PRO-BNP; Complete Time: 17:26 [facility] 05/07 16:24 Order name: Troponin (emerg Dept Use Only); Complete Time: 17:26 [facility] 05/07 16:24 Order name: XRAY Chest (1 view) [facility] 05/07 16:24 Order name: UDS; Complete Time: 17:26 [facility] 05/07 16:24 Order name: Urine Culture [facility] 05/07 16:53 Order name: Urine Dipstick--Ancillary (enter results) 05/07 16:53 Order name: Urine --Ancillary (enter results) 05/07 16:24 Order name: EKG; Complete Time: 16:25 [facility] 05/07 16:24 Order name: Cardiac monitoring; Complete Time: 16:51 [facility] 05/07 16:24 Order name: EKG - Nurse/Tech; Complete Time: 16:51 [facility] 05/07 16:24 Order name: IV Saline Lock; Complete Time: 16:51 [facility] 05/07 16:24 Order name: Labs collected and sent; Complete Time: 16:52 [facility] 05/07 16:24 Order name: O2 Per Protocol; Complete Time: 16:52 [facility] 05/07 16:24 Order name: O2 Sat Monitoring; Complete Time: 16:52 [facility] 05/07 16:24 Order name: Urine Dipstick-Ancillary (obtain specimen); Complete Time: 16:51 [facility] 05/07 17:27 Order name: PO challenge: juice; Complete Time: 17:31 [facility] Administered Medications: 16:51 Drug: NS 0.9% 1000 ml Route: IV; Rate: 125 ml/hr; Site: right antecubital; rv 17:48 Follow up: IV Status: Completed infusion rv 17:31 Drug: Norvasc 10 mg Route: PO; ca1 17:48 Follow up: Response: No adverse reaction rv Disposition: 05/07/19 17:30 Discharged to Home. Impression: Essential (primary) hypertension, Hypokalemia. - Condition is Stable. - Discharge Instructions: Potassium Content of Foods, Hypertension, Hypertension, Iigg-er-Mvat, How to Take Your Blood Pressure, Aphm-yv-Fabh, Aspirin and Your Heart, Hypokalemia, Managing Your Hypertension. - Prescriptions for Norvasc 5 mg Oral Tablet - take 1 tablet by ORAL route once daily; 20 tablet. - Medication Reconciliation Form, Thank You Letter, Antibiotic Education, Prescription Opioid Use form. - Follow up: Private Physician; When: 2 - 3 days; Reason: Recheck today's complaints, Continuance of care, Re-evaluation by your physician. Follow up: Dustin Landin MD; When: 2 - 3 days; Reason: Recheck today's complaints, Re-evaluation by your physician. - Problem is new. - Symptoms have improved. Signatures: Dispatcher [employer] EDMS Ramila Ramesh Stephanie, Vince Mercado RN, MD MD cha Vicente, Ronaldo, RN RN rv Marychuy Moraes RN RN ca1 Corrections: (The following items were deleted from the chart) 17:31 17:08 Labs - recollect needed ordered. bd ca1 17:34 16:25 PROTIME (+INR)+COAG.LAB.BRZ ordered. EDMS EDMS 17:47 17:30 05/07/2019 17:30 Discharged to Home. Impression: Essential (primary) rv hypertension; Hypokalemia. Condition is Stable. Forms are Medication Reconciliation Form, Thank You Letter, Antibiotic Education, Prescription Opioid Use. Follow up: Private Physician; When: 2 - 3 days; Reason: Recheck today's complaints, Continuance of care, Re-evaluation by your physician. Follow up: Dustin Landin; When: 2 - 3 days; Reason: Recheck today's complaints, Re-evaluation by your physician. Problem is new. Symptoms have improved. aldo
--- NOTE | 2019-05-07 17:31 | ER ---
Nurse's Notes [facility] Name: Rosetta Aranda Age: 38 yrs Sex: Female : 1980 Arrival Date: 05/07/2019 Time: 15:54 Bed 27 Private MD: Diagnosis: Essential (primary) hypertension;Hypokalemia Presentation: 05/07 15:58 Presenting complaint: Patient states: HTN 169/100, took meds at 1145, after meds 145/90 sv and then started feeling bad HEAD CONCIERGE. c/o headache, shaky, diarrhea. Reports that she hasn't been taking her BP meds for a month prior d/t feeling palpitations. Transition of care: patient was not received from another setting of care. Onset of symptoms was May 07, 2019. Risk Assessment: Do you want to hurt yourself or someone else? Patient reports no desire to harm self or others. Care prior to arrival: None. 15:58 Method Of Arrival: Ambulatory sv 15:58 Acuity: TYREE 2 sv 16:37 Initial Sepsis Screen: Does the patient meet any 2 criteria? No. Patient's initial rv sepsis screen is negative. Does the patient have a suspected source of infection? No. Patient's initial sepsis screen is negative. Triage Assessment: 15:58 General: Appears in no apparent distress. uncomfortable, Behavior is calm, cooperative, sv appropriate for age. Pain: Complains of pain in face and scalp. Neuro: Level of Consciousness is awake, alert, obeys commands, Gait is steady, Reports headache. Respiratory: Respiratory effort is even, unlabored, Respiratory pattern is regular, symmetrical. GI: Reports diarrhea. Historical: - Allergies: 16:01 Trazodone; sv 16:01 LITHIUM DERIVITIVES; sv - PMHx: 16:01 Anxiety; Bipolar disorder; Fibromyalgia; Hypertension; sv - PSHx: 16:01 Tubal ligation; sv - Immunization history:: Adult Immunizations up to date. - Social history:: Smoking status: . - Ebola Screening: : No symptoms or risks identified at this time. - Family history:: not pertinent. Screenin:36 Abuse screen: Denies threats or abuse. Denies injuries from another. Nutritional rv screening: No deficits noted. Tuberculosis screening: No symptoms or risk factors identified. Fall Risk None identified. Assessment: 16:36 General: Appears in no apparent distress. comfortable, Behavior is calm, cooperative. rv Pain: Denies pain. Neuro: Level of Consciousness is awake, alert, obeys commands, Oriented to person, place, time, situation. Cardiovascular: Patient's skin is warm and dry. Respiratory: Airway is patent. GI: No signs and/or symptoms were reported involving the gastrointestinal system. : No signs and/or symptoms were reported regarding the genitourinary system. EENT: No signs and/or symptoms were reported regarding the EENT system. Derm: Skin is intact. Musculoskeletal: No signs and/or symptoms reported regarding the musculoskeletal system. Reports weakness in general. Vital Signs: 16:01 BP 150 / 105; Pulse 82; Resp 16; Temp 97.5; Pulse Ox 98% ; Weight 90.72 kg; Height 5 sv ft. 6 in. (167.64 cm); 17:15 BP 138 / 86; Pulse 71; Resp 15; Pulse Ox 100% on R/A; rv 17:45 BP 154 / 94; Pulse 70; Resp 16; Pulse Ox 99% on R/A; rv 16:01 Body Mass Index 32.28 (90.72 kg, 167.64 cm) sv ED Course: 15:54 Patient arrived in ED. mr 16:00 Triage completed. sv 16:01 Arm band placed on. sv 16:22 Vince Bar MD is Attending Physician. aldo 16:35 Sivakumar Desai, CELIA is Primary Nurse. rv 16:37 Patient has correct armband on for positive identification. Call light in reach. Side rv rails up X 1. Pulse ox on. NIBP on. 16:37 No provider procedures requiring assistance completed. rv 16:47 Initial lab(s) drawn, by mn, sent to lab. Urine collected: clean catch specimen, clear, jp3 alee colored, EKG done, by ED staff, reviewed by Vince Bar MD. Inserted saline lock: 20 gauge in right antecubital area, using aseptic technique. Blood collected. Patient maintains SpO2 saturation greater than 95% on room air. 16:48 Warm blanket given. Verbal reassurance given. media monitor on. jp3 17:02 EKG done, by in flight technician. reviewed by Vince Bar MD. sm3 17:23 XRAY Chest (1 view) In Process Unspecified. EDMS 17:29 Dustin Landin MD is Referral Physician. aldo 17:47 IV discontinued, intact, bleeding controlled, No redness/swelling at site. Pressure rv dressing applied. Administered Medications: 16:51 Drug: NS 0.9% 1000 ml Route: IV; Rate: 125 ml/hr; Site: right antecubital; rv 17:48 Follow up: IV Status: Completed infusion rv 17:31 Drug: Norvasc 10 mg Route: PO; ca1 17:48 Follow up: Response: No adverse reaction rv Outcome: 17:30 Discharge ordered by . aldo 17:46 Discharged to home ambulatory. rv 17:46 Condition: good 17:46 Discharge instructions given to patient, Instructed on discharge instructions, follow up and referral plans. medication usage, Demonstrated understanding of instructions, follow-up care, medications, Prescriptions given X 1. 17:47 Patient left the ED. rv Signatures: Dispatcher [employer] EDDaria Gonzales RN RN Vince Bar MD MD cha Rivera, Maryann Ibarra, Donna 3 Sivakumar Desai RN RN Vincent Nava 3 Marychuy Moraes RN RN ca1 Corrections: (The following items were deleted from the chart) 16:03 15:58 Acuity: TYREE 3 sv 16:03 16:01 Temp 97.5F; 90.72 kg; Height 5 ft. 6 in.; BMI: 32.2; sv sv
[2019-05-07 18:10] VITALS: TEMP 97.5
[2019-05-07 18:12] VITALS: BP 154/94; O2SAT 99
[2019-05-07 18:52] LABS: Urine Blood TRACE (NEG); Urine Glucose NEGATIVE (NEG); Urine Protein NEGATIVE (NEG); Urine pH 8.5 (5.0-7.0)
--- NOTE | 2019-05-09 04:46 | EKG ---
Test Date: 2019-05-07 Test Time: 16:35:26 Computer Peripheral Equipment Operator: AWILDA MEASUREMENT RESULTS: Intervals: Rate: 68 DC: 164 QRSD: 78 QT: 400 QTc: 425 Maryneal: P: 46 DC: 164 QRS: -3 T: 48 INTERPRETIVE STATEMENTS: Normal sinus rhythm with sinus arrhythmia normal ECG Compared to ECG 02/08/2019 10:23:17 Sinus bradycardia no longer present Electronically Signed On 05-09-19 04:45:55 CDT by Ricardo Garcia
--- NOTE | 2019-05-09 12:17 | RAD REPORT ---
EXAM DESCRIPTION: RAD - Chest Single View - 05/08/2019 7:01 pm CLINICAL HISTORY: Cough, hypertension COMPARISON: None. TECHNIQUE: AP portable chest image was obtained 1634 hours . FINDINGS: Lung volumes are low. No peripheral mass or consolidation. No failure or volume overload s uspected. Heart size accentuated by shallow inspiration. Vasculature within normal limits. No measura ble pleural effusion and no pneumothorax. No acute bony abnormality seen. No acute aortic findings hanley spected. IMPRESSION: No acute cardiopulmonary process. Note: Due to prolonged technical difficulties with the PACs - dictation systems, final written report was delayed.
== END 2019-05-07 17:47 | disposition home or self-care (01) ==
LOC: ER 15:51
DX: E87.6 Hypokalemia (principal); Z88.5 Allergy status to narcotic agent; Z88.8 Allergy status to other drugs, medicaments and biological substances
CPT/HCPCS: 93005; 87088; 85025; 87086; 80048; 36415; 83735; 81025; 80076; 80307 ×8; 81003; 84484; 83880; 71045; 96360; 99285; J7030

== ENCOUNTER 2019-05-08 00:59 | Emergency (ER) | payer BC ==
[2019-05-08] MEDS ORDERED: ONDANSETRON 4 MG (ODT) TAB ONE (01:44)
[2019-05-08] MEDS ORDERED: cloNIDine HCl 0.1 MG TAB ONE (01:47)
[2019-05-08] MEDS ORDERED: METOCLOPRAMIDE 5 MG TAB ONE (01:47)
[2019-05-08] MEDS ORDERED: DIPHENHYDRAMINE 25 MG TAB/CAP ONE (01:47)
--- NOTE | 2019-05-08 03:12 | EDPHYS ---
Physician Documentation [facility] Name: Rosetta Aranda Age: 38 yrs Sex: Female : 1980 Arrival Date: 05/08/2019 Time: 01:18 Bed 16 Private MD: ED Physician Luis Carlos Loo HPI: 05/08 01:54 This 38 yrs old Female presents to ER via Ambulatory with complaints of High ps1 Blood Pressure. 01:54 patient was seen and evaluated earlier and was discharged. She had her BP medications ps1 adjusted and started having a headache. She rechecked her BP and it was elevated 170's systolic and did not know if she could take more BP medications. . 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 - Social history:: Smoking status: Patient/guardian denies using tobacco, Patient uses street drugs, marijuana, Patient/guardian denies using alcohol. - Ebola Screening: : Patient negative for fever greater than or equal to 101.5 degrees Fahrenheit, and additional compatible Ebola Virus Disease symptoms Patient denies exposure to infectious person Patient denies travel to an Ebola-affected area in the 21 days before illness onset. ROS: 03:09 Constitutional: Negative for fever, chills, and weight loss, Eyes: Negative for injury, ps1 pain, redness, and discharge, Cardiovascular: Negative for chest pain, palpitations, and edema, Respiratory: Negative for shortness of breath, cough, wheezing, and pleuritic chest pain, MS/Extremity: Negative for injury and deformity, Skin: Negative for injury, rash, and discoloration. 03:09 Abdomen/GI: Positive for nausea and vomiting. 03:09 Neuro: Positive for headache. Exam: 03:09 Constitutional: This is a well developed, well nourished patient who is awake, alert, ps1 and in no acute distress. Head/Face: Normocephalic, atraumatic. Eyes: Pupils equal round and reactive to light, extra-ocular motions intact. Lids and lashes normal. Conjunctiva and sclera are non-icteric and not injected. Cardiovascular: Regular rate and rhythm. No gallops, murmurs, or rubs. Normal PMI, no JVD. No pulse deficits. Respiratory: Lungs have equal breath sounds bilaterally, clear to auscultation and percussion. No rales, rhonchi or wheezes noted. No increased work of breathing, no retractions or nasal flaring. Abdomen/GI: Soft, non-tender, with normal bowel sounds. No distension or tympany. No guarding or rebound. No evidence of tenderness throughout. MS/ Extremity: Pulses equal, no cyanosis. Neurovascular intact. Full, normal range of motion. Neuro: Awake and alert, GCS 15, oriented to person, place, time, and situation. Cranial nerves II-XII grossly intact. Sensory grossly intact. Psych: Awake, alert, with orientation to person, place and time. Behavior, mood, and affect are within normal limits. Vital Signs: 01:29 BP 166 / 100; Pulse 84; Resp 18; Temp 97.9(O); Pulse Ox 99% on R/A; Weight 90.72 kg fc (R); Height 5 ft. 6 in. (167.64 cm) (R); Pain 9/10; 02:49 BP 117 / 83; Pulse 75; Resp 16; Pulse Ox 99% ; rr5 03:28 BP 116 / 71; Pulse 69; Resp 16; Temp 97; Pulse Ox 99% ; rr5 01:29 Body Mass Index 32.28 (90.72 kg, 167.64 cm) fc MDM: 03:10 Patient medically screened. ps1 03:11 Data reviewed: vital signs, nurses notes, and as a result, I will discharge patient. ps1 Counseling: I had a detailed discussion with the patient and/or guardian regarding: the historical points, exam findings, and any diagnostic results supporting the discharge/admit diagnosis, the presence of at least one elevated blood pressure reading (>120/80) during this emergency department visit, the need for outpatient follow up, to return to the emergency department if symptoms worsen or persist or if there are any questions or concerns that arise at home. ED course: symptoms and BP improved after treatment. Stable for discharge. . Administered Medications: 01:45 Drug: Zofran 4 mg Route: PO; lp1 03:30 Follow up: Response: No adverse reaction rr5 01:58 Drug: Reglan 10 mg Route: PO; rr5 03:31 Follow up: Response: No adverse reaction; Marked relief of symptoms rr5 01:58 Drug: Benadryl 25 mg Route: PO; rr5 03:31 Follow up: Response: No adverse reaction; Marked relief of symptoms rr5 01:58 Drug: cloNIDine 0.1 mg Route: PO; rr5 03:30 Follow up: Response: No adverse reaction; Marked relief of symptoms rr5 Disposition: 05/08/19 03:10 Discharged to Home. Impression: Headache, Hypertension secondary to endocrine disorders. - Condition is Stable. - Discharge Instructions: Hypertension. - Medication Reconciliation Form, Thank You Letter, Antibiotic Education, Prescription Opioid Use form. - Follow up: Private Physician; When: 24 Hours; Reason: Further diagnostic work-up, Recheck today's complaints, Continuance of care, Re-evaluation by your physician. Follow up: Emergency Department; When: As needed; Reason: Worsening of condition. - Problem is an ongoing problem. - Symptoms have improved. Signatures: Halley Escobar, RN RN fc Myrna Darby RN RN lp1 Luis Carlos Loo MD MD ps1 Sanjiv Hanley RN RN rr5 Corrections: (The following items were deleted from the chart) 03:31 03:10 05/08/2019 03:10 Discharged to Home. Impression: Headache; Hypertension secondary rr5 to endocrine disorders. Condition is Stable. Forms are Medication Reconciliation Form, Thank You Letter, Antibiotic Education, Prescription Opioid Use. Follow up: Private Physician; When: 24 Hours; Reason: Further diagnostic work-up, Recheck today's complaints, Continuance of care, Re-evaluation by your physician. Follow up: Emergency Department; When: As needed; Reason: Worsening of condition. Problem is an ongoing problem. Symptoms have improved. ps1
--- NOTE | 2019-05-08 03:12 | ER ---
Nurse's Notes [facility] Name: Rosetta Aranda Age: 38 yrs Sex: Female : 1980 Arrival Date: 05/08/2019 Time: 01:18 Bed 16 Private MD: Diagnosis: Headache;Hypertension secondary to endocrine disorders Presentation: 05/08 01:25 Presenting complaint: Patient states: that she was here earlier for bp problems and fc given rx. Tonight her bp went back up to 179/112 and she started to have headache and nausea. Transition of care: patient was not received from another setting of care. Onset of symptoms was May 08, 2019. Risk Assessment: Do you want to hurt yourself or someone else? Patient reports no desire to harm self or others. Initial Sepsis Screen: Does the patient meet any 2 criteria? No. Patient's initial sepsis screen is negative. Does the patient have a suspected source of infection? No. Patient's initial sepsis screen is negative. Care prior to arrival: None. 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 - Social history:: Smoking status: Patient/guardian denies using tobacco, Patient uses street drugs, marijuana, Patient/guardian denies using alcohol. - Ebola Screening: : Patient negative for fever greater than or equal to 101.5 degrees Fahrenheit, and additional compatible Ebola Virus Disease symptoms Patient denies exposure to infectious person Patient denies travel to an Ebola-affected area in the 21 days before illness onset. Screenin:31 Abuse screen: Denies threats or abuse. Nutritional screening: No deficits noted. fc Tuberculosis screening: No symptoms or risk factors identified. Fall Risk None identified. Assessment: 01:45 General: Appears uncomfortable, Behavior is anxious. Pain: Complains of pain in head. lp1 Neuro: Level of Consciousness is awake, alert, obeys commands, Oriented to person, place, time, situation, Reports headache. Cardiovascular: Patient's skin is warm and dry. Respiratory: Respiratory effort is even, unlabored. GI: Pt is actively vomiting. : No signs and/or symptoms were reported regarding the genitourinary system. EENT: No signs and/or symptoms were reported regarding the EENT system. Derm: Skin is pink, warm \T\ dry. Musculoskeletal: No deficits noted. 02:15 Reassessment: Patient appears in no apparent distress at this time. Patient and/or rr5 family updated on plan of care and expected duration. Pain level reassessed. Patient is alert, oriented x 3, equal unlabored respirations, skin warm/dry/pink. chatting with her chief general pediatric clinic. 03:28 Reassessment: Patient appears in no apparent distress at this time. Patient is alert, rr5 oriented x 3, equal unlabored respirations, skin warm/dry/pink. discharge instruction given and explained without complaints made. verbalized understanding. Patient states feeling better. Patient states symptoms have improved. Vital Signs: 01:29 BP 166 / 100; Pulse 84; Resp 18; Temp 97.9(O); Pulse Ox 99% on R/A; Weight 90.72 kg fc (R); Height 5 ft. 6 in. (167.64 cm) (R); Pain 9/10; 02:49 BP 117 / 83; Pulse 75; Resp 16; Pulse Ox 99% ; rr5 03:28 BP 116 / 71; Pulse 69; Resp 16; Temp 97; Pulse Ox 99% ; rr5 01:29 Body Mass Index 32.28 (90.72 kg, 167.64 cm) ED Course: 01:18 Patient arrived in ED. cf2 01:26 Triage completed. fc 01:29 Arm band placed on Patient placed in an exam room, on a stretcher. fc 01:31 Patient has correct armband on for positive identification. Bed in low position. Call light in reach. 01:34 Luis Carlos Loo MD is Attending Physician. ps1 01:43 Myrna Darby RN is Primary Nurse. lp1 03:29 No provider procedures requiring assistance completed. Patient did not have IV access rr5 during this emergency room visit. Administered Medications: 01:45 Drug: Zofran 4 mg Route: PO; lp1 03:30 Follow up: Response: No adverse reaction rr5 01:58 Drug: Reglan 10 mg Route: PO; rr5 03:31 Follow up: Response: No adverse reaction; Marked relief of symptoms rr5 01:58 Drug: Benadryl 25 mg Route: PO; rr5 03:31 Follow up: Response: No adverse reaction; Marked relief of symptoms rr5 01:58 Drug: cloNIDine 0.1 mg Route: PO; rr5 03:30 Follow up: Response: No adverse reaction; Marked relief of symptoms rr5 Outcome: 03:10 Discharge ordered by . ps1 03:29 Discharged to home ambulatory, with family. rr5 03:29 Condition: stable 03:29 Discharge instructions given to patient, Instructed on discharge instructions, follow up and referral plans. Demonstrated understanding of instructions, follow-up care. 03:31 Patient left the ED. rr5 Signatures: Halley Escobar RN RN fc Myrna Darby RN RN lp1 Luis Carlos Loo MD MD ps1 Sanjiv Hanley RN RN rr5 Gerber Garcia cf2
[2019-05-08 04:18] VITALS: O2SAT 99
[2019-05-08 04:21] VITALS: BP 116/71; TEMP 97
== END 2019-05-08 03:31 | disposition home or self-care (01) ==
LOC: ER 00:59
DX: I15.2 Hypertension secondary to endocrine disorders (principal); M79.7 Fibromyalgia; F31.9 Bipolar disorder, unspecified; F41.9 Anxiety disorder, unspecified; Z88.5 Allergy status to narcotic agent; Z88.8 Allergy status to other drugs, medicaments and biological substances
CPT/HCPCS: 99283

== ENCOUNTER 2019-06-19 22:26 | Emergency (ER) | payer BC ==
[2019-06-19] MEDS ORDERED: ONDANSETRON 4 MG/2 ML VIAL ONE (23:04)
[2019-06-19 23:08] LABS: Absolute Lymphocytes (CBC) 3.1 K/uL (0.7-4.9); Basophils % 0.7 % (0-1.3); Hematocrit 39.9 % (36.0-45.0); Lymphocytes % 32.9 % (15.3-44.8); MPV 7.7 fL (7.6-11.3); RBC Red Blood Cell Count 4.56 M/uL (3.86-4.86)
[2019-06-19] MEDS ORDERED: KETOROLAC 30 MG/ML INJ ONE (23:08)
[2019-06-19] MEDS ORDERED: NA CHLORIDE 0.9% 1,000 ML ONE (23:09)
[2019-06-19 23:32] LABS: Albumin 4.2 g/dL (3.4-5.0); Bilirubin Direct 0.2 mg/dL (0-0.2); Bilirubin Total 0.5 mg/dL (0.2-1.0); Potassium 3.3 mmol/L (3.5-5.1); Protein, Total 8.6 g/dL (6.4-8.2)
[2019-06-19 23:34] LABS: Urine Blood 3+ (NEG); Urine Glucose NEGATIVE (NEG); Urine Protein 1+ (NEG); Urine Specific Gravity >1.030 (1.005-1.030); Urine pH 5.5 (5.0-7.0)
--- NOTE | 2019-06-20 01:29 | EDPHYS ---
Physician Documentation [facility] Name: Rosetta Aranda Age: 38 yrs Sex: Female : 1980 Arrival Date: 06/19/2019 Time: 22:29 Bed 5 Private MD: ED Physician Sony Jordan HPI: 06/19 23:16 This 38 yrs old Female presents to ER via Ambulatory with complaints of tw4 Vomiting, RT side pain from back to front. 23:16 The patient presents to the emergency department with nausea, vomiting, abdominal pain, tw4 of the right lower quadrant. Onset: The symptoms/episode began/occurred this morning, and became worse. Possible causes: unknown. The symptoms are aggravated by nothing. The symptoms are alleviated by nothing. Associated signs and symptoms: The patient has no apparent associated signs or symptoms. Severity of symptoms: At their worst the symptoms were moderate in the emergency department the symptoms are unchanged. The patient has not experienced similar symptoms in the past. 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 - Social history:: Smoking status: Patient/guardian denies using tobacco, Patient uses street drugs, marijuana. - Ebola Screening: : No symptoms or risks identified at this time. ROS: 23:16 Constitutional: Negative for fever, chills, and weight loss, Eyes: Negative for injury, tw4 pain, redness, and discharge, Cardiovascular: Negative for chest pain, palpitations, and edema, Respiratory: Negative for shortness of breath, cough, wheezing, and pleuritic chest pain, MS/Extremity: Negative for injury and deformity, Skin: Negative for injury, rash, and discoloration. 23:16 Abdomen/GI: Positive for abdominal pain, nausea and vomiting, nausea, vomiting. Exam: 23:16 Constitutional: This is a well developed, well nourished patient who is awake, alert, tw4 and in no acute distress. Head/Face: Normocephalic, atraumatic. Chest/axilla: Normal chest wall appearance and motion. Nontender with no deformity. No lesions are appreciated. Cardiovascular: Regular rate and rhythm with a normal S1 and S2. No gallops, murmurs, or rubs. Normal PMI, no JVD. No pulse deficits. Respiratory: Lungs have equal breath sounds bilaterally, clear to auscultation and percussion. No rales, rhonchi or wheezes noted. No increased work of breathing, no retractions or nasal flaring. Abdomen/GI: Soft, non-tender, with normal bowel sounds. No distension or tympany. No guarding or rebound. No evidence of tenderness throughout. MS/ Extremity: Pulses equal, no cyanosis. Neurovascular intact. Full, normal range of motion. Neuro: Awake and alert, GCS 15, oriented to person, place, time, and situation. Cranial nerves II-XII grossly intact. Motor strength 5/5 in all extremities. Sensory grossly intact. Cerebellar exam normal. Normal gait. Vital Signs: 22:36 BP 164 / 94; Pulse 70; Resp 20; Temp 97.3; Pulse Ox 99% on R/A; Weight 90.72 kg (R); aa1 Height 5 ft. 6 in. (167.64 cm) (R); Pain 8/10; 23:40 BP 143 / 85; Pulse 75; Resp 17 S; Pulse Ox 100% on R/A; Pain 4/10; cc3 06/20 00:28 BP 129 / 87; Pulse 77; Resp 18 S; Pulse Ox 100% on R/A; cc3 01:14 BP 124 / 84; Pulse 75; Resp 16 S; Pulse Ox 100% on R/A; Pain 2/10; cc3 06/19 22:36 Body Mass Index 32.28 (90.72 kg, 167.64 cm) aa1 MDM: 06/19 22:42 Patient medically screened. tw4 06/20 07:00 Differential diagnosis: Nonspecific abd pain, gastritis, cholecystitis. Data reviewed: tw4 vital signs, nurses notes. Data interpreted: Pulse oximetry: Interpretation: normal. Counseling: I had a detailed discussion with the patient and/or guardian regarding: the historical points, exam findings, and any diagnostic results supporting the discharge/admit diagnosis. Special discussion: I discussed with the patient/guardian in detail that at this point there is no indication for admission to the hospital. It is understood, however, that if the symptoms persist or worsen the patient needs to return immediately for re-evaluation. 06/19 22:44 Order name: Basic Metabolic Panel; Complete Time: 23:47 [facility] 06/19 23:47 Interpretation: Normal except: K 3.3; GLUC 115. [facility] 06/19 22:44 Order name: CBC with Diff; Complete Time: 23:47 [facility] 06/19 23:48 Interpretation: Within normal limits. [facility] 06/19 22:44 Order name: Creatinine for Radiology; Complete Time: 23:47 [facility] 06/19 23:48 Interpretation: Within normal limits: CRE 0.73. [facility] 06/19 22:44 Order name: Hepatic Function; Complete Time: 23:47 [facility] 06/19 23:48 Interpretation: Normal except: AST 14; TP 8.6; GLOB 4.4; A/G 1.0. [facility] 06/19 22:44 Order name: Lipase; Complete Time: 23:47 [facility] 06/19 23:48 Interpretation: Within normal limits: LIP 96. [facility] 06/19 23:22 Order name: Urine Dipstick--Ancillary (enter results); Complete Time: 23:47 [facility] 06/19 23:48 Interpretation: Normal except: UBLD 3+; UPROT 1+. [facility] 06/19 22:44 Order name: IV Saline Lock; Complete Time: 23:04 [facility] 06/19 22:44 Order name: Labs collected and sent; Complete Time: 23:04 [facility] 06/19 22:44 Order name: Urine Dipstick-Ancillary (obtain specimen); Complete Time: 23:21 [facility] 06/19 23:22 Order name: Urine --Ancillary (enter results); Complete Time: 23:47 [facility] 06/19 23:48 Interpretation: Normal except: USPGR >1.030. [facility] 06/19 23:44 Order name: CT Stone Protocol [facility] 06/19 22:44 Order name: Urine Test (obtain specimen); Complete Time: 23:21 [facility] Administered Medications: 06/19 23:00 Drug: NS 0.9% 1000 ml Route: IV; Rate: 1 bolus; Site: right antecubital; cc3 06/20 00:00 Follow up: Response: No adverse reaction; IV Status: Completed infusion; IV Intake: cc3 1000ml 06/19 23:00 Drug: TORadol 30 mg Route: IVP; Site: right antecubital; cc3 23:39 Follow up: Response: No adverse reaction; Pain is decreased cc3 23:05 Drug: Zofran 4 mg Route: IVP; Site: right antecubital; cc3 23:39 Follow up: Response: No adverse reaction; Nausea is decreased; Vomiting decreased cc3 Disposition: 06/20/19 01:28 Discharged to Home. Impression: Calculus of kidney with calculus of ureter. - Condition is Stable. - Discharge Instructions: Renal Colic, [id number], Kidney Stones, [id number]. - Prescriptions for Ibuprofen 800 mg Oral Tablet - take 1 tablet by ORAL route every 8 hours As needed take with food; 30 tablet. Tylenol- Codeine #3 300-30 mg Oral Tablet - take 2 tablet by ORAL route every 6 hours As needed; 6 tablet. Flomax 0.4 mg Oral Capsule, Sust. Release 24 hr - take 1 capsule by ORAL route once daily 1/2 hour following the same meal each day; 30 capsule. - Medication Reconciliation Form, Thank You Letter, Antibiotic Education, Prescription Opioid Use form. - Follow up: Private Physician; When: Upon discharge from the Emergency Department; Reason: If symptoms return, Recheck today's complaints, Continuance of care. - Problem is new. - Symptoms have improved. Signatures: Dispatcher [employer] Argelia Bernal RN RN aa1 Sony Jordan MD MD tw4 Анна Forde cc3 Corrections: (The following items were deleted from the chart) 06/20 01:42 01:28 06/20/2019 01:28 Discharged to Home. Impression: Calculus of kidney with calculus cc3 of ureter. Condition is Stable. Forms are Medication Reconciliation Form, Thank You Letter, Antibiotic Education, Prescription Opioid Use. Follow up: Private Physician; When: Upon discharge from the Emergency Department; Reason: If symptoms return, Recheck today's complaints, Continuance of care. Problem is new. Symptoms have improved. tw4
--- NOTE | 2019-06-20 01:29 | ER ---
Nurse's Notes 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 Transition of care: patient was not received from another setting of care. Onset of symptoms was June 19, 2019. Risk Assessment: Do you want to hurt yourself or someone else? Patient reports no desire to harm self or others. Initial Sepsis Screen: Does the patient meet any 2 criteria? No. Patient's initial sepsis screen is negative. Does the patient have a suspected source of infection? Yes: Acute abdominal pain. Care prior to arrival: None. 22:34 Method Of Arrival: Ambulatory aa1 22:34 Acuity: TYREE 3 aa1 Triage Assessment: 22:36 General: Appears in no apparent distress. uncomfortable, Behavior is calm, cooperative, aa1 appropriate for age. 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 - Social history:: Smoking status: Patient/guardian denies using tobacco, Patient uses street drugs, marijuana. - Ebola Screening: : No symptoms or risks identified at this time. Screenin:49 Abuse screen: Denies threats or abuse. Denies injuries from another. Nutritional ak1 screening: No deficits noted. Tuberculosis screening: No symptoms or risk factors identified. Fall Risk None identified. Assessment: 22:49 General: Appears uncomfortable, Behavior is calm, cooperative. Pain: Complains of pain ak1 in posterior aspect of right lateral abdomen and right lower quadrant. Neuro: No deficits noted. Cardiovascular: No deficits noted. Respiratory: No deficits noted. GI: Abdomen is round. : Reports burning with urination, vaginal bleeding that is pt states she is on her cycle. EENT: No signs and/or symptoms were reported regarding the EENT system. Derm: No signs and/or symptoms reported regarding the dermatologic system. Musculoskeletal: No signs and/or symptoms reported regarding the musculoskeletal system. 23:38 Reassessment: Patient appears in no apparent distress at this time. Patient and/or cc3 family updated on plan of care and expected duration. Pain level reassessed. Patient is alert, oriented x 3, equal unlabored respirations, skin warm/dry/pink. Patient denies pain at this time. Patient states feeling better. Patient states symptoms have improved. 06/20 00:10 Reassessment: Patient appears in no apparent distress at this time. Patient and/or cc3 family updated on plan of care and expected duration. Pain level reassessed. Patient is alert, oriented x 3, equal unlabored respirations, skin warm/dry/pink. Patient came back from CT scan department, awaiting result. Patient denies pain at this time. Patient states feeling better. Patient states symptoms have improved. 01:13 Reassessment: Patient appears in no apparent distress at this time. Patient and/or cc3 family updated on plan of care and expected duration. Pain level reassessed. Patient is alert, oriented x 3, equal unlabored respirations, skin warm/dry/pink. Patient denies pain at this time. Patient states feeling better. Patient states symptoms have improved. 01:35 Reassessment: Patient appears in no apparent distress at this time. Patient and/or cc3 family updated on plan of care and expected duration. Pain level reassessed. Patient is alert, oriented x 3, equal unlabored respirations, skin warm/dry/pink. Dr. Jordan discharged the patient home with prescriptions given. IV cannula removed and patient left ER vitally stable and ambulatory with her . No valuables left in the patient's room. Patient denies pain at this time. Patient states feeling better. Patient states symptoms have improved. Vital Signs: 06/19 22:36 BP 164 / 94; Pulse 70; Resp 20; Temp 97.3; Pulse Ox 99% on R/A; Weight 90.72 kg (R); aa1 Height 5 ft. 6 in. (167.64 cm) (R); Pain 8/10; 23:40 BP 143 / 85; Pulse 75; Resp 17 S; Pulse Ox 100% on R/A; Pain 4/10; cc3 16 00:28 BP 129 / 87; Pulse 77; Resp 18 S; Pulse Ox 100% on R/A; cc3 01:14 BP 124 / 84; Pulse 75; Resp 16 S; Pulse Ox 100% on R/A; Pain 2/10; cc3 06/19 22:36 Body Mass Index 32.28 (90.72 kg, 167.64 cm) aa1 ED Course: 06/19 22:29 Patient arrived in ED. es 22:35 Triage completed. aa1 22:36 Arm band placed on right wrist. Patient placed in an exam room, on a stretcher. aa1 22:38 Анна Forde is Primary Nurse. cc3 22:42 Sony Jordan MD is Attending Physician. tw4 22:49 Patient has correct armband on for positive identification. Placed in gown. Bed in low ak1 position. Call light in reach. Side rails up X 1. Pulse ox on. NIBP on. 22:55 Inserted saline lock: 20 gauge in right antecubital area, using aseptic technique. cc3 Blood collected. 06/20 00:27 CT Stone Protocol In Process Unspecified. EDMS 01:35 No provider procedures requiring assistance completed. IV discontinued, intact, cc3 bleeding controlled, No redness/swelling at site. Pressure dressing applied. Administered Medications: 06/19 23:00 Drug: NS 0.9% 1000 ml Route: IV; Rate: 1 bolus; Site: right antecubital; cc3 06/20 00:00 Follow up: Response: No adverse reaction; IV Status: Completed infusion; IV Intake: cc3 1000ml 06/19 23:00 Drug: TORadol 30 mg Route: IVP; Site: right antecubital; cc3 23:39 Follow up: Response: No adverse reaction; Pain is decreased cc3 23:05 Drug: Zofran 4 mg Route: IVP; Site: right antecubital; cc3 23:39 Follow up: Response: No adverse reaction; Nausea is decreased; Vomiting decreased cc3 Intake: 06/20 00:00 IV: 1000ml; Total: 1000ml. cc3 Outcome: 01:28 Discharge ordered by . tw4 01:35 Discharged to home ambulatory, with family. cc3 01:35 Condition: stable 01:35 Discharge instructions given to patient, family, Instructed on discharge instructions, follow up and referral plans. medication usage, Demonstrated understanding of instructions, follow-up care, medications, Prescriptions given X 3. 01:42 Patient left the ED. cc3 Signatures: Dispatcher [employer] Argelia Bernal, RN RN aa1 Nuris Martinez Amber RN RN ak1 Sony Jordan MD MD tw4 Анна Forde cc3
[2019-06-20 02:49] VITALS: TEMP 97.3
[2019-06-20 02:50] VITALS: O2SAT 100
[2019-06-20 02:53] VITALS: BP 124/84
--- NOTE | 2019-06-22 13:51 | RAD REPORT ---
EXAM DESCRIPTION: Stone Protocol CLINICAL HISTORY: ABD PAIN COMPARISON: None. TECHNIQUE: CT ABDOMEN PELVIS WITHOUT IV CONTRAST on 06/19/2019 11:44 PM PUBLICIST This exam was performed according to our departmental dose-optimization program, which includes autom ated exposure control, adjustment of the mA and/or kV according to patient size and/or use of iterati ve reconstruction technique. FINDINGS: Lower lungs are clear. Abdomen: Liver is fatty in attenuation. There is no biliary dilatation. Gallbladder is normal in appe arance. The pancreas and spleen are normal in appearance. Adrenal glands and left kidney are normal. There is a 2 mm mid pole right renal calculus. There is mild right hydronephrosis and hydroureter. Abdominal aorta is normal in course and caliber without aneurysm. There is no free air. There is no r etroperitoneal adenopathy. Pelvis: There is no bowel obstruction. 2 mm urinary bladder calculus is present posteriorly near the right UVJ. There is no free fluid. Appendix is normal. Uterus is normal in size likely containing an inferior anterior fibroid measuring 3.6 cm. Skeleton: There are no acute osseous findings. No suspicious bony lesions. IMPRESSION: Mild right hydronephrosis with a urinary bladder calculus near the UVJ. Electronically signed by: James Polo MD 06/20/2019 12:31 AM PUBLICIST Due to temporary technical issues with the PACS/Fluency reporting system, reports are being signed by the in house radiologist as a courtesy to ensure prompt reporting. The interpreting radiologist is f ully responsible for the content of the report.
== END 2019-06-20 01:42 | disposition home or self-care (01) ==
LOC: ER 22:26
DX: N20.2 Calculus of kidney with calculus of ureter (principal); I10 Essential (primary) hypertension; F31.9 Bipolar disorder, unspecified; Z88.8 Allergy status to other drugs, medicaments and biological substances
CPT/HCPCS: 96361; 85025; 80048; 36415; 81025; 80076; 81003; 83690; 76377; 74176; 96375; 96374; 99284; J7030; J2405

== ENCOUNTER 2020-10-08 01:41 | Emergency (ER) | payer BC, SELFPAY ==
[2020-10-08] MEDS ORDERED: MORPHINE 4 MG/ML SYR ONE (02:36)
[2020-10-08] MEDS ORDERED: NA CHLORIDE 0.9% 1,000 ML ONE (02:37)
[2020-10-08] MEDS ORDERED: ONDANSETRON 4 MG/2 ML VIAL ONE (02:37)
[2020-10-08] MEDS ORDERED: FAMOTIDINE 20 MG/2 ML VIAL IV ONE (02:37)
[2020-10-08 02:38] LABS: Basophils % 0.5 % (0-1.3); Hematocrit 39.8 % (36.0-45.0); Lymphocytes % 28.9 % (15.3-44.8); MPV 8.1 fL (7.6-11.3); RBC Red Blood Cell Count 4.58 M/uL (3.86-4.86)
[2020-10-08 02:58] LABS: ALT/SGPT 23 U/L (12-78); AST/SGOT 14 U/L (15-37); Albumin 3.9 g/dL (3.4-5.0); Alkaline Phosphatase 75 U/L (45-117); BUN Blood Urea Nitrogen 9 mg/dL (7-18); Bicarbonate 26 mmol/L (21-32); Bilirubin Direct < 0.1 mg/dL (0-0.2); Bilirubin Total 0.4 mg/dL (0.2-1.0); Glucose Level 116 mg/dL (74-106); Lipase 107 U/L (73-393); Potassium 3.3 mmol/L (3.5-5.1); Protein, Total 8.4 g/dL (6.4-8.2); Sodium Level 140 mmol/L (136-145)
[2020-10-08 04:04] LABS: Urine Blood TRACE (NEG); Urine Glucose NEGATIVE (NEG); Urine Protein NEGATIVE (NEG); Urine Specific Gravity 1.025 (1.005-1.030)
--- NOTE | 2020-10-08 04:15 | EDPHYS ---
Physician Documentation [facility] Name: Rosetta Aranda Age: 40 yrs Sex: Female : 1980 Arrival Date: 10/08/2020 Time: 01:44 Bed 5 Private MD: ED Physician [place] HPI: 10/08 02:22 This 40 yrs old Female presents to ER via Ambulatory with complaints of mh7 Nausea/Vomiting/Diarrhea. 02:22 The patient presents to the emergency department with nausea, that is moderate, mh7 vomiting, that is intermittent, diarrhea, that is intermittent, abdominal pain, of the abdomen diffusely, described as crampy, intermittent, waxing and waning, and does not radiate. Onset: The symptoms/episode began/occurred today, at 00:00. Possible causes: bad food exposure, possibly bad restaurant food. The symptoms are aggravated by nothing. The symptoms are alleviated by nothing. Associated signs and symptoms: Pertinent positives: abdominal pain, diarrhea, nausea, vomiting, Pertinent negatives: anorexia, belching, constipation, dysuria, fever, flatulence, GI bleeding, hematuria, vaginal discharge. Severity of symptoms: At their worst the symptoms were moderate today, in the emergency department the symptoms are unchanged. 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 - Social history:: Smoking status: unknown Patient uses street drugs, marijuana, Patient/guardian denies using alcohol. ROS: 02:22 Constitutional: Negative for fever, chills, and weight loss, Eyes: Negative for injury, mh7 pain, redness, and discharge, ENT: Negative for injury, pain, and discharge, Neck: Negative for injury, pain, and swelling, Cardiovascular: Negative for chest pain, palpitations, and edema, Respiratory: Negative for shortness of breath, cough, wheezing, and pleuritic chest pain, Back: Negative for injury and pain, : Negative for injury, bleeding, discharge, and swelling, MS/Extremity: Negative for injury and deformity, Skin: Negative for injury, rash, and discoloration, Neuro: Negative for headache, weakness, numbness, tingling, and seizure, Psych: Negative for depression, anxiety, suicide ideation, homicidal ideation, and hallucinations, Allergy/Immunology: Negative for hives, rash, and allergies, Endocrine: Negative for neck swelling, polydipsia, polyuria, polyphagia, and marked weight changes, Hematologic/Lymphatic: Negative for swollen nodes, abnormal bleeding, and unusual bruising. Exam: 02:22 Constitutional: This is a well developed, well nourished patient who is awake, alert, mh7 and in no acute distress. Head/Face: Normocephalic, atraumatic. Eyes: Pupils equal round and reactive to light, extra-ocular motions intact. Lids and lashes normal. Conjunctiva and sclera are non-icteric and not injected. Cornea within normal limits. Periorbital areas with no swelling, redness, or edema. Neck: Trachea midline, no thyromegaly or masses palpated, and no cervical lymphadenopathy. Supple, full range of motion without nuchal rigidity, or vertebral point tenderness. No Meningismus. Chest/axilla: Normal chest wall appearance and motion. Nontender with no deformity. No lesions are appreciated. Cardiovascular: Regular rate and rhythm with a normal S1 and S2. No gallops, murmurs, or rubs. Normal PMI, no JVD. No pulse deficits. Respiratory: Lungs have equal breath sounds bilaterally, clear to auscultation and percussion. No rales, rhonchi or wheezes noted. No increased work of breathing, no retractions or nasal flaring. :22 Back: No spinal tenderness. No costovertebral tenderness. Full range of motion. Skin: Warm, dry with normal turgor. Normal color with no rashes, no lesions, and no evidence of cellulitis. MS/ Extremity: Pulses equal, no cyanosis. Neurovascular intact. Full, normal range of motion. Neuro: Awake and alert, GCS 15, oriented to person, place, time, and situation. Cranial nerves II-XII grossly intact. Motor strength 5/5 in all extremities. Sensory grossly intact. Cerebellar exam normal. Normal gait. Psych: Awake, alert, with orientation to person, place and time. Behavior, mood, and affect are within normal limits. 02:22 Abdomen/GI: Inspection: abdomen appears normal, Bowel sounds: normal, in all quadrants, Palpation: moderate abdominal tenderness, in all quadrants, Rectal exam: the exam is deferred, because of patient request, Indicators: McBurney's point is not tender, Reyes's sign is negative, Rovsing's sign is negative, Obturator sign is negative, Psoas sign is negative, Liver: no appreciated palpable abnormalities, Hernia: not appreciated. Vital Signs: 01:56 BP 146 / 99; Pulse 74; Resp 17; Temp 98; Pulse Ox 100% ; Weight 95.71 kg; Height 5 ft. rr5 6 in. (167.64 cm); Pain 5/10; 03:00 BP 132 / 89; Pulse 79; Resp 19; Pulse Ox 99% ; rr5 03:49 BP 128 / 79; Pulse 70; Resp 16; Pulse Ox 98% ; rr5 04:22 BP 121 / 85; Pulse 76; Resp 16; Pulse Ox 98% ; rr5 01:56 Body Mass Index 34.06 (95.71 kg, 167.64 cm) rr5 MDM: 04:13 Differential diagnosis: Nonspecific abd pain, gastritis, cholecystitis, pancreatitis, mh7 appendicitis, diverticulitis, viral gastroenteritis, gastroenteritis. Data reviewed: vital signs, nurses notes, lab test result(s), amylase and lipase, CBC, electrolytes, urinalysis, EKG, radiologic studies, CT scan. Data interpreted: Pulse oximetry: on room air is 98 %. Interpretation: normal. Counseling: I had a detailed discussion with the patient and/or guardian regarding: the historical points, exam findings, and any diagnostic results supporting the discharge/admit diagnosis, lab results, radiology results, the need for outpatient follow up, to return to the emergency department if symptoms worsen or persist or if there are any questions or concerns that arise at home. Response to treatment: the patient's symptoms have resolved after treatment, the patient's blood pressure is in an acceptable range, mental status has returned to baseline, the patient no longer shows bradycardia, the patient is not short of breath, the patient is not tachycardic, the patient's pain is gone, the patient's temperature has normalized. 04:15 Patient medically screened. [facility] 10/08 02:02 Order name: Basic Metabolic Panel rr5 10/08 02:02 Order name: CBC with Diff rr5 10/08 02:02 Order name: Hepatic Function rr5 10/08 02:02 Order name: Lipase rr5 10/08 02:47 Order name: CBC with Automated Diff; Complete Time: 02:58 EDMS 10/08 02:58 Order name: Basic Metabolic Panel; Complete Time: 03:07 EDMS 10/08 02:27 Order name: CT Abd/Pelvis - IV Contrast Only [facility] 10/08 02:58 Order name: Liver (Hepatic) Function; Complete Time: 03:07 EDMS 10/08 02:58 Order name: Lipase; Complete Time: 03:07 EDMS 10/08 03:39 Order name: Urine --Ancillary (enter results) tt3 10/08 03:39 Order name: Urine Dipstick--Ancillary (enter results) tt3 10/08 04:04 Order name: Urine --Ancillary EDMS 10/08 04:04 Order name: Urine Dipstick-Ancillary EDMS 10/08 02:02 Order name: IV Saline Lock; Complete Time: 02:34 rr5 10/08 02:02 Order name: Labs collected and sent; Complete Time: 02:34 5 10/08 02:13 Order name: Urine Dipstick-Ancillary (obtain specimen); Complete Time: 03:38 7 10/08 02:13 Order name: Urine Test (obtain specimen); Complete Time: 03:38 7 10/08 02:13 Order name: EKG - Nurse/Tech; Complete Time: 02:45 mh7 Administered Medications: 02:20 Drug: NS 0.9% 1000 ml Route: IV; Rate: 1000 ml; Site: right antecubital; rr5 03:20 Follow up: Response: No adverse reaction; IV Status: Completed infusion; IV Intake: rr5 1000ml 02:20 Drug: Zofran (Ondansetron) 4 mg Route: IVP; Site: right antecubital; rr5 03:39 Follow up: Response: No adverse reaction rr5 02:22 Drug: Pepcid 20 mg Route: IVP; Site: right antecubital; rr5 03:20 Follow up: Response: No adverse reaction rr5 02:25 Drug: morphine 4 mg {Note: rass 0.} Route: IVP; Site: right antecubital; rr5 03:38 Follow up: Response: No adverse reaction; RASS: Alert and Calm (0) rr5 Disposition: 10/08/20 04:15 Discharged to Home. Impression: Gastroenteritis. - Condition is Stable. - Discharge Instructions: Viral Gastroenteritis, Adult, [id number]. - Prescriptions for Zofran ODT 4 mg Oral tablet,disintegrating - place 1 tablet by TRANSLINGUAL route every 8 hours As needed; 6 tablet. Bentyl 20 mg Oral Tablet - take 1 tablet by ORAL route every 6 hours As needed; 20 tablet. Pepcid 20 mg Oral Tablet - take 1 tablet by ORAL route every 12 hours for 5 days; 10 tablet. Cipro 500 mg Oral Tablet - take 1 tablet by ORAL route every 12 hours for 5 days; 10 tablet. - Medication Reconciliation Form, Thank You Letter, Antibiotic Education, Prescription Opioid Use form. - Follow up: Private Physician; When: 1 - 2 days; Reason: Worsening of condition, Recheck today's complaints, Continuance of care, Re-evaluation by your physician. - Problem is new. - Symptoms have improved. Signatures: Dispatcher [employer] EDWA Sanjiv Hanley RN RN rr5 [place] MD MD mh7 Corrections: (The following items were deleted from the chart) 04:24 04:15 10/08/2020 04:15 Discharged to Home. Impression: Gastroenteritis. Condition is rr5 Stable. Forms are Medication Reconciliation Form, Thank You Letter, Antibiotic Education, Prescription Opioid Use. Follow up: Private Physician; When: 1 - 2 days; Reason: Worsening of condition, Recheck today's complaints, Continuance of care, Re-evaluation by your physician. Problem is new. Symptoms have improved. mh7
--- NOTE | 2020-10-08 04:15 | ER ---
Nurse's Notes [facility] Name: Rosetta Aranda Age: 40 yrs Sex: Female : 1980 Arrival Date: 10/08/2020 Time: 01:44 Bed 5 Private MD: Diagnosis: Gastroenteritis Presentation: 10/08 01:56 Chief complaint: Patient states: I don't know if I had foods poisoning. we ate dinner rr5 around 830pM in a BBQ place after 2 hours I having abdominal cramps, diarrhea and vomiting. denies fever, denies urinary symptoms. Coronavirus screen: Client denies travel out of the [place] in the last 14 days. diarrhea, vomiting. Client presents with at least one sign or symptom that may indicate coronavirus-19. Ebola Screen: Patient negative for fever greater than or equal to 101.5 degrees Fahrenheit, and additional compatible Ebola Virus Disease symptoms Patient denies exposure to infectious person. Patient denies travel to an Ebola-affected area in the 21 days before illness onset. Initial Sepsis Screen: Does the patient meet any 2 criteria? No. Patient's initial sepsis screen is negative. Does the patient have a suspected source of infection? Yes: Acute abdominal pain. Risk Assessment: Do you want to hurt yourself or someone else? Patient reports no desire to harm self or others. Onset of symptoms was October 07, 2020 at 22:30. 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 - Social history:: Smoking status: unknown Patient uses street drugs, marijuana, Patient/guardian denies using alcohol. Screenin:31 Abuse screen: Denies threats or abuse. Denies injuries from another. Nutritional rr5 screening: No deficits noted. Tuberculosis screening: No symptoms or risk factors identified. Fall Risk IV access (20 points). Total Farnsworth Fall Scale indicates No Risk (0-24 pts). Assessment: 02:00 General: Appears in no apparent distress. comfortable, Behavior is calm, cooperative, rr5 appropriate for age. Pain: Complains of pain in abdomen Pain currently is 5 out of 10 on a pain scale. Quality of pain is described as crampy, Pain began Is intermittent. 02:00 Neuro: Level of Consciousness is awake, alert, obeys commands, Oriented to person, rr5 place, time. Cardiovascular: Capillary refill < 3 seconds Patient's skin is warm and dry. Respiratory: Airway is patent Respiratory effort is even, unlabored, Respiratory pattern is regular, symmetrical. GI: Abdomen is round non-distended, Reports lower abdominal pain, cramping, diarrhea, nausea, vomiting. : No signs and/or symptoms were reported regarding the genitourinary system. EENT: No signs and/or symptoms were reported regarding the EENT system. Derm: Skin is intact, is healthy with good turgor, Skin temperature is warm. Musculoskeletal: Circulation, motion, and sensation intact. Capillary refill < 3 seconds. 03:35 Reassessment: Patient appears in no apparent distress at this time. Patient is alert, rr5 oriented x 3, equal unlabored respirations, skin warm/dry/pink. back from CT scan. 04:22 Reassessment: Patient appears in no apparent distress at this time. Patient is alert, rr5 oriented x 3, equal unlabored respirations, skin warm/dry/pink. discharge instruction given and explained without complaints made. Vital Signs: 01:56 BP 146 / 99; Pulse 74; Resp 17; Temp 98; Pulse Ox 100% ; Weight 95.71 kg; Height 5 ft. rr5 6 in. (167.64 cm); Pain 5/10; 03:00 BP 132 / 89; Pulse 79; Resp 19; Pulse Ox 99% ; rr5 03:49 BP 128 / 79; Pulse 70; Resp 16; Pulse Ox 98% ; rr5 04:22 BP 121 / 85; Pulse 76; Resp 16; Pulse Ox 98% ; rr5 01:56 Body Mass Index 34.06 (95.71 kg, 167.64 cm) rr5 ED Course: 01:44 Patient arrived in ED. am4 01:44 Hanley, Sanjiv, RN is Primary Nurse. rr5 01:59 Triage completed. rr5 02:00 [place] MD is Attending Physician. 7 02:01 Arm band placed on right wrist. rr5 02:10 No provider procedures requiring assistance completed. Inserted saline lock: 20 gauge rr5 in right antecubital area, using aseptic technique. ,using aseptic technique. inserted by [facility] tech Blood collected. 02:32 Patient has correct armband on for positive identification. Placed in gown. Bed in low rr5 position. Call light in reach. Pulse ox on. NIBP on. 02:45 EKG done, by ED staff, reviewed by [place] MD. rr5 04:23 IV discontinued, intact, bleeding controlled, No redness/swelling at site. Pressure rr5 dressing applied. 13:12 CT Abd/Pelvis - IV Contrast Only In Process Unspecified. EDMS Administered Medications: 02:20 Drug: NS 0.9% 1000 ml Route: IV; Rate: 1000 ml; Site: right antecubital; rr5 03:20 Follow up: Response: No adverse reaction; IV Status: Completed infusion; IV Intake: rr5 1000ml 02:20 Drug: Zofran (Ondansetron) 4 mg Route: IVP; Site: right antecubital; rr5 03:39 Follow up: Response: No adverse reaction rr5 02:22 Drug: Pepcid 20 mg Route: IVP; Site: right antecubital; rr5 03:20 Follow up: Response: No adverse reaction rr5 02:25 Drug: morphine 4 mg {Note: rass 0.} Route: IVP; Site: right antecubital; rr5 03:38 Follow up: Response: No adverse reaction; RASS: Alert and Calm (0) rr5 Intake: 03:20 IV: 1000ml; Total: 1000ml. rr5 Outcome: 04:15 Discharge ordered by . mh7 04:23 Discharged to home ambulatory. rr5 04:23 Condition: stable 04:23 Discharge instructions given to patient, Instructed on discharge instructions, follow up and referral plans. medication usage, Demonstrated understanding of Prescriptions given X 4. 04:24 Patient left the ED. rr5 Signatures: [facility] Sanjiv Hanley RN RN rr5 [place] MD MD 7 Fartun Ibanez 4 Corrections: (The following items were deleted from the chart) 02:00 01:56 Onset of symptoms was October 07, 2020 at 20:30 rr5 rr5
[2020-10-08 04:28] VITALS: TEMP 98
[2020-10-08 04:31] VITALS: O2SAT 98
[2020-10-08 04:32] VITALS: BP 121/85
--- NOTE | 2020-10-08 22:25 | RAD REPORT ---
EXAM DESCRIPTION: CT - Abdomen Pelvis W Contrast - 10/08/2020 6:39 am CLINICAL HISTORY: 40 years, Female, Abd pain;Nausea / vomiting COMPARISON: 06/19/2019 TECHNIQUE: Contrast-enhanced images of the abdomen and pelvis were performed utilizing 2 mm slice th ickness at 2 mm interval reconstruction from the lung bases to the ischial tuberosities after the adm inistration of 100 cc of Omnipaque 350 at the rate of 3.0 cc/sec. Subsequent delayed imaging was obta ined. In addition multiplanar reformats in the coronal and sagittal plane were obtained and reviewed. An individualized dose optimization technique, Automated Exposure Control, was utilized for the perfo rmed procedure. FINDINGS: The lung bases demonstrate to be clear. The liver, gallbladder, pancreas, spleen and adrenal glands demonstrate to be unremarkable, no focal lesions are noted. The kidneys demonstrate normal uptake of contrast media. There is midpole and lower pole right renal calculi with no evidence for hydronephrosis and/or hydroureter. Grossly the unopacified stomach, small bowel and large bowel demonstrate to be within normal limits. There is no evidence of bowel dilatation and/or free air. The appendix is normal. The urinary bladder demonstrate to be unremarkable. The uterus demonstrate to be within normal limi ts. Normal bilateral adnexal structures questionable minimal trace right adnexa could correspond to m ost likely ovulation. The aorta demonstrate to be normal. There is no retroperitoneal lymphadenop athy. There is no evidence for ascites and/or significant abnormal fluid collections. The rest of the soft tissue and bony structures are within normal limits. IMPRESSION: Nonobstructing right renal calculi. No hydronephrosis and/or hydroureter on either side. No evidence of bowel dilatation or free air. No evidence for acute intra-abdominal process. Electronically signed by: Gomez Levi MD 10/08/2020 4:02 AM CANTEEN ATTENDANT Due to temporary technical issues with the PACS/Fluency reporting system, reports are being signed by the in house radiologists without review as a courtesy to insure prompt reporting. The interpreting radiologist is fully responsible for the content of the report.
== END 2020-10-08 04:24 | disposition home or self-care (01) ==
LOC: ER 01:41
DX: K52.9 Noninfective gastroenteritis and colitis, unspecified (principal); I10 Essential (primary) hypertension; F31.9 Bipolar disorder, unspecified; Z88.8 Allergy status to other drugs, medicaments and biological substances
CPT/HCPCS: 36415; 74177; 80048; 80076; 81003; 81025; 83690; 85025; 93005; 96361; 96374; 96375; 99284; J2405; J7030; Q9967

== ENCOUNTER 2022-06-28 15:48 | Emergency (ER) | payer SELFPAY ==
--- OUTSIDE RECORDS SUMMARY | 2022-06-28 15:52 | XMS REPORT | Continuity of Care Document ---
:[address] [facility] t Address [address] [place] [address] Dr. Youngblood [address] [place] [address] Care Team Providers Name Role Phone Leyla Nath MD Primary Care Physician MESSI GAMEZ Attending Clinician Unavailable Messi Mejía Attending Clinician MI GARCIA Attending Clinician Unavailable iM Garcia MD Attending Clinician [phone] Doctor Unassigned, [facility] [place] Attending Clinician Unavailable OLIVIA MACARIO Attending Clinician Unavailable MI GARCIA Admitting Clinician Unavailable OLIVIA MACARIO Admitting Clinician Unavailable Problems Condition Condition Condition Status Onset Resolution Last Treating Co mments Source Name Details Category Date Date Treatment Clinician Date Chest Chest Disease Active Univers pain, pain, 03-08 it[facility] [place] 00 [facility] Hypertensi Hypertensi Disease Active U nivers on, on, 03-08 it[place] type 00 [facility] Allergies, Adverse Reactions, Alerts Allergy Allergy Status Severity Reaction(s) Onset Inactive Treating Comm ents Source Name Type Date Date Clinician NO KNOWN Drug Active Univers ALLERGIE Class ity of S [facility] Social History Social Habit Start Date Stop Date Quantity Comments Source Exposure to 2022-06-18 2022-06-28 Not sure [facility] SARS-CoV-2 (event) 00:00:00 02:09:00 Medica Branch Sex Assigned At [birth year] [facility] [place] 00:00:00 00:00:00 Medical Branch Smoking Status Start Date Stop Date Source Tobacco smoking consumption [facility] Branch Medications Ordered Filled Start Stop Current Ordering Indication Dosage Frequency Signature Comments Components Source Medication Medication Date Date Medication? Clinician (SIG) Name Name phenazopyri 2021-08 Yes [id number] 200mg Take 1 Univers dine 200 mg 1-24 tablet by ity of tablet 00:00: mouth in [place] 00 the Medical morning Branch and 1 tablet at noon and 1 tablet in the evening. No known 2021-08 No No known Unive rs medications 1-14 medication it y of 11:11: s [place] 28 [facility] metoprolol 5mg 5 mg, Slow Univers (LOPRESSOR) 03-09 IV Push, ity of injection 5 01:45: 01:51 ONCE[place] 1 [place] :00 dose, On [facility] [place] 03/08/22 Branch at 2044, R[place] Vital Signs Vital Name Observation Time Observation Value Comments Source Systolic blood 2022-06-28 09:39:00 131 mm[Hg] Univer sity of pressure [facility] Diastolic blood 2022-06-28 09:39:00 80 mm[Hg] [facility] Heart rate 2022-06-28 09:39:00 70 /min [facility] Respiratory rate 2022-06-28 09:39:00 16 /min [facility] acute hospital Oxygen saturation in 2022-06-28 09:39:00 99 /min [facility] Arterial blood by [facility] Pulse oximetry Branch Body temperature 2022-06-28 08:10:00 36.56 [facility] Body height 2022-06-28 08:10:00 165.1 cm [facility] Body weight 2022-06-28 08:10:00 90.719 kg [facility] BMI 2022-06-28 08:10:00 33.28 kg/m2 [facility] Systolic blood 2022-06-18 17:02:00 146 mm[Hg] Univer sity of pressure [place] [facility] Diastolic blood 2022-06-18 17:02:00 99 mm[Hg] Unive rsity of pressure [facility] Heart rate 2022-06-18 17:02:00 79 /min Universi ty of [facility] Body temperature 2022-06-18 17:02:[address] [facility] ersity of [facility] Respiratory rate 2022-06-18 17:02:00 18 /min Univ ersity [facility] Body height 2022-06-18 17:02:00 167.6 cm Universi ty of [facility] Body weight 2022-06-18 17:02:00 86.183 kg Universi ty of [facility] BMI 2022-06-18 17:02:00 30.67 kg/m2 Universi ty [facility] Oxygen saturation in 2022-06-18 17:02:00 99 /min University of Arterial blood by [facility] Pulse oximetry Branch Systolic blood 2022-03-09 02:33:00 144 mm[Hg] Univer sity of pressure [place] [facility] Diastolic blood 2022-03-09 02:33:00 91 mm[Hg] Unive rsity of pressure [facility] Heart rate 2022-03-09 02:33:00 70 /min Universi ty [facility] Oxygen saturation in 2022-03-09 02:33:00 99 /min University of Arterial blood by [facility] Pulse oximetry Branch Respiratory rate 2022-03-09 02:00:00 11 /min Univ ersity [facility] Body temperature 2022-03-09 01:38:00 36.33 [facility] Body height 2022-03-09 01:38:00 167.6 cm Universi ty of [facility] Body weight 2022-03-09 01:38:00 88.451 kg Universi ty of [facility] BMI 2022-03-09 01:38:00 31.47 kg/m2 Universi ty [facility] Procedures Procedure Date / Time Performing Clinician Source Performed POCT TEST 2022-06-28 08:35:00 Messi Gamez [facility] URINALYSIS 2022-06-28 08:32:00 Messi Gamez [facility] NOTICE OF PRIVACY 2022-06-28 08:02:59 Doctor Unassigned, No [facility] Name Medical Branch CONSENT/REFUSAL FOR 2022-06-28 08:02:31 Doctor Unassigned, No [facility] [place] DIAGNOSIS AND Name [facility] Branch TREATMENT XR FOOT 3+ VW 2022-06-18 17:25:44 Mi Garcia [facility] CONSENT/REFUSAL FOR 2022-06-18 16:58:55 Doctor Unassigned, No [facility] [place] DIAGNOSIS AND Name Medical Branch TREATMENT NOTICE OF PRIVACY 2022-06-18 16:56:44 Doctor Unassigned, No [facility] Name [facility] TROPONIN I 2022-03-09 01:47:00 Renaldo [facility] COMP. METABOLIC PANEL 2022-03-09 01:47:00 Olivia Macario [facility] ([id number]) [facility] CBC WITH DIFF 2022-03-09 01:47:00 [facility] N-TERMINAL PRO-BNP 2022-03-09 01:47:00 Olivia Macario [facility] Plan of Care Planned Activity Planned Date Details Comments Source Encounters Start End Encounter Admission Attending Care Care Encounter Source Date/Time Date/Time Type Type Clinicians Facility Department ID 2022-06-28 2022-06-28 Emergency X VERA, [facility] ERT [id number] Univers 02:16:00 03:42:00 MESSI neal [facility] 2022-06-28 2022-06-28 Emergency [place], [facility] [id number] Univers 02:16:00 03:42:00 Messi TOBAR [id number] adalgisa jasmine [place] [id number] [facility] [id number] [facility] 084 Branch 2022-06-18 2022-06-18 Emergency X AUFDERHEIDE [facility] ERT [id number] Univers 11:03:00 12:57:00 MI [facility] 2022-06-18 2022-06-18 Emergency Aufderheide [facility] [id number] Univers 11:03:00 12:57:00 , Mi AMADOU [id number] i ty of Myrna LONG [id number] [facility] [id number] [address] 2022-06-18 2022-06-18 Orders Doctor KAZ [id number] Univers 00:00:00 00:00:00 Only Unassigned, LEANNE [id number] ity of [facility] [place] [facility] [id number] [facility] [id number] [place] [address] Branch 2022-03-08 2022-03-08 [facility] [id number] Univers 20:32:00 21:39:00 [facility] 2022-03-08 2022-03-08 Emergency [facility] [id number] Univers 20:32:00 21:39:00 Olivia AMADOU [id number] i ty of ETHAN [id number] [facility] [id number] [address] Results Test Description Test Time Test Comments Results Result Comments Source POCT TEST 2022-06-28 08:35:00 Test Item Value Reference Range Interpretation Comme nts POCT PREG (test code = 1605) Negative On board controls acceptable with C Line (test code = 3574) Present POCT PREG LOT # (test code = 3575) HCG [id number] POCT PREG TEST DATE (test code = 3576) 11/03/2023 Lab Interpretation (test code = 76316-6) [id number]:24[facility]28 Test Item Value Reference Interpretation Comments Range TROPONIN I (test 0.001 ng/mL See_Comment [Automated code = 1442570340) message] The system which generated this result transmitted reference range : <=0.034. The reference range was not used to interpret this result as normal/abnormal . DEIRDRE (test code = Reference (Normal) DEIRDRE) Range (defined by the 99th percentile reference limit): <= 0.034 ng/mL Note: Cardiac troponin begins to rise 3-4 hours after the onset of ischemia. Repeat in 4-6 hours if the sample was drawn within 3-4 hours of the onset of the symptom and found normal. Diagnosis of myocardial injury is made with acute changes in cTn concentrations with at least one serial sample above the 99th percentile upper reference limit (URL), taken together with the patient's clinical presentation. Biotin has been reported to cause a negative bias, interpret results relative to patient's use of biotin. Lab Interpretation Normal (test code = 11679-3) [facility] [id number] 02:20:06 Test Item Value Reference Range Interpretation Comments NT-proBNP (test code 39 pg/mL See_Comment [Autom ated = 8521066850) message] The system which generated this result transmitted reference range : <=125. The reference range was not used to interpret this result as normal/abnormal . DEIRDRE (test code = DEIRDRE) Biotin has been reported to cause a negative bias, interpret results relative to patient's use of biotin. Lab Interpretation Normal (test code = 52024-5) [facility]. METABOLIC PANEL (66412)2022-03-09 02:11:26 Test Item Value Reference Range Interpretation Comments NA (test code = 138 mmol/L 135-145 3644579790) K (test code = 3.3 mmol/L 3.5-5 L 6030720426) CL (test code = 99 mmol/L 98-108 2880806341) CO2 TOTAL (test code = 29 mmol/L 23-31 4352086755) AGAP (test code = 2-16 0470925982) BUN (test code = 10 mg/dL 7-23 7065880646) GLUCOSE (test code = 116 mg/dL 70-110 H 9357944472) CREATININE (test code = 0.55 mg/dL 0.5-1.04 1041779896) TOTAL BILI (test code = 0.4 mg/dL 0.1-1.1 2708938347) CALCIUM (test code = 9.3 mg/dL 8.6-10.6 4008336513) T PROTEIN (test code = 7.9 g/dL 6.3-8.2 1575913521) ALBUMIN (test code = 4.5 g/dL 3.5-5 3857665334) ALK PHOS (test code = 65 U/L 34-122 6846885912) ALTv (test code = 17 U/L 5-35 2-6) AST(SGOT) (test code = 21 U/L 13-40 3216405221) eGFR (test code = mL/min/1.73m2 9011301188) DEIRDRE (test code = DEIRDRE) Association of Glomerular Filtration Rate (GFR) and Staging of Kidney Disease* + --+ --+ ------+| GFR (mL/min/1.73 m2) ?| With Kidney Damage ?| ?Without Kidney Damage+ --------+ --------+ +| ?>90 ?| ?Stage one ?| ? Normal ?+ ---+ ---+ -------+| ?60-89 ?| ?Stage two ?| ? Decreased GFR ? + --+ --+ ------+| ?30-59 ?| ?Stage three ?| ? Stage three ? + --+ --+ ------+| ?15-29 ?| ?Stage four ? | ? Stage four ?+ ---+ ---+ -------+| ?<15 (or dialysis) ? ?| ?Stage five ? | ? Stage five ?+ ---+ ---+ -------+ *Each stage assumes the associated GFR level has been in effect for at least three months. ?Stages 1 to 5, with or without kidney disease, indicate chronic kidney disease. Notes: Determination of stages one and two (with eGFR >59mL/min/1.73 m2) requires estimation of kidney damage for at least three months as defined by structural or functional abnormalities of the kidney, manifested by either:Pathological abnormalities or Markers of kidney damage (including abnormalities in the composition of the blood or urine or abnormalities in imaging tests). Lab Interpretation Abnormal (test code = 98126-8) [facility] WITH [id number] 01:55:46 Test Item Value Reference Range Interpretation Comments WBC (test code = See_Comment [Automated 0390-2) message] The sy stem which generated this result transmitted reference range : 4.30 - 11.10 10*3/?L. The reference range was not used to interpret this result as normal/abnormal . RBC (test code = See_Comment [Automated 789-8) message] The sy stem which generated this result transmitted reference range : 3.93 - 5.25 10*6/?L. The reference range was not used to interpret this result as normal/abnormal . HGB (test code = 13.6 g/dL 11.6-15 718-7) HCT (test code = 40.5 % 35.7-45.2 4544-3) MCV (test code = 84.7 fL 80.6-95.5 787-2) MCH (test code = 28.5 pg 25.9-32.8 785-6) MCHC (test code = 33.6 g/dL 31.6-35.1 786-4) RDW-SD (test code = 41.9 fL 39-49.9 87648-7) RDW-CV (test code = 13.4 % 12-15.5 788-0) PLT (test code = See_Comment [Automated 777-3) message] The sy stem which generated this result transmitted reference range : 166 - 358 10*3/ ?L. The reference r kaleb was not used to interpret this result as normal/abnormal . MPV (test code = 8.9 fL 9.5-12.9 L 94325-6) NRBC/100 WBC (test See_Comment [Automat ed code = 2281088112) message] The system which generated this result transmitted reference range : 0.0 - 10.0 /100 WBCs. The refer ence range was not u sed to interpret th is result as normal/abnormal . NRBC x10^3 (test code See_Comment [Auto mated = 1817590678) message] The s ystem which generated this result transmitted reference range : 10*3/?L. The reference range was not used to interpret this result as normal/abnormal . GRAN MAT (NEUT) % 61.0 % (test code = 770-8) IMM GRAN % (test code 0.20 % = 4965283873) LYMPH % (test code = 30.7 % 736-9) MONO % (test code = 7.0 % 5905-5) EOS % (test code = 0.5 % 713-8) BASO % (test code = 0.6 % 706-2) GRAN MAT x10^3(ANC) 5.26 10*3/uL 1.88-7.09 (test code = 0313544026) IMM GRAN x10^3 (test 0-0.06 code = 5901085428) LYMPH x10^3 (test code 2.64 10*3/uL 1.32-3.29 = 731-0) MONO x10^3 (test code 0.60 10*3/uL 0.33-0.92 = 742-7) EOS x10^3 (test code = 0.04 10*3/uL 0.03-0.39 711-2) BASO x10^3 (test code 0.05 10*3/uL 0.01-0.07 = 704-7) Lab Interpretation Abnormal (test code = 63508-5) [facility]"
[2022-06-28] MEDS ORDERED: ALPRAZOLAM 1 MG TABLET ONE (16:16)
--- NOTE | 2022-06-28 16:16 | EDPHYS ---
Physician Documentation [facility] Name: Rosetta Aranda Age: 41 yrs Sex: Female : 1980 Arrival Date: 06/28/2022 Time: 15:51 Bed 11 Private MD: ED Physician Reynaldo Parada HPI: 06/28 16:08 This 41 yrs old Female presents to ER via Ambulatory with complaints of ms3 Anxiety, Numbness. 16:08 The patient presents to the emergency department with anxiety, over unknown ms3 circumstances. Onset: The symptoms/episode began/occurred 1 month(s) ago. Past psychiatric history: Prior diagnosis: Anxiety, Psychiatric medications include: Xanax, Zoloft, Hydroxyzine. Associated signs and symptoms: Pertinent positives; anxiety, Pertinent negatives:. Severity of symptoms: At their worst the symptoms were moderate in the emergency department the symptoms are unchanged Pain is currently a 0 / 10. Historical: - Allergies: 15:58 LITHIUM DERIVITIVES; ll1 - PMHx: 15:58 Anxiety; Bipolar disorder; Fibromyalgia; Hypertension; ll1 - PSHx: 15:58 "tubal ligation"; ll1 - Immunization history:: Client reports receiving the 2nd dose of the Covid vaccine. - Social history:: Smoking status: Patient denies any tobacco usage or history of. ROS: 16:08 Constitutional: Negative for fever, and chills. ENT: Negative for injury, pain, and ms3 discharge, Neck: Negative for injury, pain, and swelling, Cardiovascular: Negative for chest pain, and palpitations. Respiratory: Negative for shortness of breath, cough, wheezing, and pleuritic chest pain, Abdomen/GI: Negative for abdominal pain, nausea, vomiting, diarrhea, and constipation, Back: Negative for injury and pain, Skin: Negative for injury, rash, and discoloration. 16:08 Neuro: Positive for numbness, tingling. 16:08 Psych: Positive for anxiety. 16:08 All other systems are negative. Exam: 16:08 Constitutional: This is a well developed, well nourished patient who is awake, alert, ms3 and in no acute distress. Head/Face: Normocephalic, atraumatic. Neck: Trachea midline, no cervical lymphadenopathy. Supple, full range of motion without nuchal rigidity, or vertebral point tenderness. No Meningismus. Chest/axilla: Normal chest wall appearance and motion. Nontender with no deformity. Cardiovascular: Regular rate and rhythm with a normal S1 and S2. No gallops, murmurs, or rubs. Normal PMI, no JVD. No pulse deficits. Respiratory: Lungs have equal breath sounds bilaterally, clear to auscultation and percussion. No rales, rhonchi or wheezes noted. No increased work of breathing, no retractions or nasal flaring. Abdomen/GI: Soft, non-tender, with normal bowel sounds. No distension or tympany. No guarding or rebound. No evidence of tenderness throughout. Skin: Warm, dry with normal turgor. Normal color with no rashes, no lesions, and no evidence of cellulitis. MS/ Extremity: Pulses equal, no cyanosis. Neurovascular intact. Full, normal range of motion. Neuro: Awake and alert, GCS 15, oriented to person, place, time, and situation. Cranial nerves II-XII grossly intact. Motor strength 5/5 in all extremities. Sensory grossly intact. Cerebellar exam normal. Normal gait. 16:08 Psych: Behavior/mood is anxious, Affect is calm, Oriented to person, place, time, Patient has no thoughts/intents to harm self or others. Judgement / Insight is normal. Memory is normal. Delusions/hallucinations are not present. Vital Signs: 15:59 BP 158 / 115; Pulse 98; Resp 18; Temp 98.6; Pulse Ox 99% ; Weight 92.99 kg; Height 5 ll1 ft. 5 in. (165.10 cm); Pain 0/10; 15:59 Body Mass Index 34.11 (92.99 kg, 165.10 cm) ll1 MDM: 16:07 Patient medically screened. ms3 16:08 Data reviewed: vital signs, nurses notes, and as a result, I will discharge patient. ms3 Counseling: I had a detailed discussion with the patient and/or guardian regarding: the historical points, exam findings, and any diagnostic results supporting the discharge/admit diagnosis, the need for outpatient follow up, to return to the emergency department if symptoms worsen or persist or if there are any questions or concerns that arise at home. ED course: Discussed physical exam findings with patient. Patient to follow-up with psychiatry in 2 to 3 days. Patient understands agrees with plan. All questions were answered. Return precautions discussed include worsening symptoms, or any other concerns. Administered Medications: 16:25 Drug: XANax (alprazolam) Tablet 1 mg Route: PO; tp1 16:25 Follow up: Response: Medication administered at discharge. tp1 Disposition Summary: 06/28/22 16:16 Discharge Ordered Location: Home ms3 Condition: Stable ms3 Diagnosis - Anxiety disorder, unspecified ms3 - Paresthesia of skin ms3 Followup: ms3 - With: Private Physician - When: 2 - 3 days - Reason: Recheck today's complaints Discharge Instructions: - Discharge Summary Sheet ms3 - Panic Attack ms3 - Managing Anxiety, Adult ms3 Forms: - Medication Reconciliation Form ms3 - Thank You Letter ms3 - Antibiotic Education ms3 - Prescription Opioid Use ms3 Prescriptions: - Zoloft 50 mg Oral Tablet - take 1 tablet by ORAL route once daily; 30 tablet; Refills: 0, Product ms3 Selection Permitted Signatures: Theresa Gusman RN RN ll1 Reynaldo Parada DO DO ms3 Yumiko Blankenship RN RN tp1
--- NOTE | 2022-06-28 16:16 | ER ---
Nurse's Notes [facility] Name: Rosetta Aranda Age: 41 yrs Sex: Female : 1980 Arrival Date: 06/28/2022 Time: 15:51 Bed 11 Private MD: Diagnosis: Anxiety disorder, unspecified;Paresthesia of skin Presentation: 06/28 15:59 Chief complaint: Patient states: Anxiety worse than usual for 1 month. Out of Zoloft, ll1 xanax, and hydroxyzine. Still taking norvasc. Coronavirus screen: Vaccine status: Patient reports receiving the 2nd dose of the covid vaccine. Client denies travel out of the [place] in the last 14 days. At this time, the client does not indicate any symptoms associated with coronavirus-19. Ebola Screen: Patient denies travel to an Ebola-affected area in the 21 days before illness onset. Initial Sepsis Screen: Does the patient meet any 2 criteria? HR > 90 bpm. No. Patient's initial sepsis screen is negative. Does the patient have a suspected source of infection? No. Patient's initial sepsis screen is negative. Risk Assessment: Do you want to hurt yourself or someone else? Patient reports no desire to harm self or others. Onset of symptoms was May 28, 2022. 15:59 Method Of Arrival: Ambulatory ll1 15:59 Acuity: TYREE 3 ll1 Triage Assessment: 16:01 General: Appears distressed, uncomfortable, Behavior is cooperative, anxious, crying. ll1 Pain: Denies pain. Neuro: Level of Consciousness is awake, alert, obeys commands, Oriented to person, place, time, situation, Gait is steady, Speech is normal, Facial symmetry appears normal, Reports paresthesias in face, right hand and left hand anxiety. Historical: - Allergies: 15:58 LITHIUM DERIVITIVES; ll1 - PMHx: 15:58 Anxiety; Bipolar disorder; Fibromyalgia; Hypertension; ll1 - PSHx: 15:58 "tubal ligation"; ll1 - Immunization history:: Client reports receiving the 2nd dose of the Covid vaccine. - Social history:: Smoking status: Patient denies any tobacco usage or history of. Screenin:15 Abuse screen: Denies threats or abuse. Denies injuries from another. Nutritional tp1 screening: No deficits noted. Tuberculosis screening: No symptoms or risk factors identified. Fall Risk None identified. Assessment: 16:15 General: Appears in no apparent distress. comfortable, Behavior is cooperative, tp1 anxious. Pain: Denies pain. Neuro: Level of Consciousness is awake, alert, obeys commands, Oriented to person, place, time, situation, Reports numbness in bilateral hands . Cardiovascular: Capillary refill < 3 seconds in bilateral fingers Patient's skin is warm and dry. Respiratory: Airway is patent Respiratory effort is even, unlabored. GI: No signs and/or symptoms were reported involving the gastrointestinal system. : No signs and/or symptoms were reported regarding the genitourinary system. EENT: No signs and/or symptoms were reported regarding the EENT system. Derm: Skin is pink, warm \\T\\ dry. Musculoskeletal: Circulation, motion, and sensation intact. Vital Signs: 15:59 BP 158 / 115; Pulse 98; Resp 18; Temp 98.6; Pulse Ox 99% ; Weight 92.99 kg; Height 5 ll1 ft. 5 in. (165.10 cm); Pain 0/10; 15:59 Body Mass Index 34.11 (92.99 kg, 165.10 cm) ll1 ED Course: 15:51 Patient arrived in ED. rg4 15:58 Reynaldo Parada DO is Attending Physician. ms3 15:58 Arm band placed on Patient placed in an exam room, on a stretcher. ll1 16:01 Triage completed. ll1 16:11 Yumiko Blankenship, RN is Primary Nurse. tp1 16:15 Patient has correct armband on for positive identification. Placed in gown. Bed in low tp1 position. 16:15 No provider procedures requiring assistance completed. Patient did not have IV access tp1 during this emergency room visit. Administered Medications: 16:25 Drug: XANax (alprazolam) Tablet 1 mg Route: PO; tp1 16:25 Follow up: Response: Medication administered at discharge. tp1 Medication: 16:30 VIS not applicable for this client. tp1 Outcome: 16:16 Discharge ordered by . ms3 16:29 Discharged to home ambulatory. tp1 16:29 Condition: good 16:29 Discharge instructions given to patient, Instructed on discharge instructions, follow up and referral plans. medication usage, Demonstrated understanding of instructions, follow-up care, medications, Prescriptions given X 1. 16:30 Patient left the ED. tp1 Signatures: Bobbi Ayers rg4 Theresa Gusman RN RN ll1 Reynaldo Parada DO DO ms3 Yumiko Blankenship RN RN tp1
[2022-06-28 16:55] VITALS: BP 158/115; TEMP 98.6; O2SAT 99
== END 2022-06-28 16:30 | disposition home or self-care (01) ==
LOC: ER 15:48
DX: F41.9 Anxiety disorder, unspecified (principal); R20.2 Paresthesia of skin
CPT/HCPCS: 99283

== ENCOUNTER 2022-07-02 18:09 | Emergency (ER) | payer SELFPAY ==
--- OUTSIDE RECORDS SUMMARY | 2022-07-02 18:17 | XMS REPORT | Continuity of Care Document ---
:1980 Author Organization [facility] t Address [address] [place] [address] [address] [place] [address] Care Team Providers Name Role Phone Leyla Nath MD Primary Care Physician MESSI GAMEZ Attending Clinician Unavailable Messi Mejía Attending Clinician MI GARCIA Attending Clinician Unavailable Mi Garcia MD Attending Clinician [phone] Doctor Unassigned, Shiro Attending Clinician Unavailable OLIVIA MACARIO Attending Clinician [...] Active Univers ALLERGIE Class ity of S [facility] Social History Social Habit Start Date Stop Date Quantity Comments Source Exposure to 2022-06-18 2022-06-28 Not sure [facility] SARS-CoV-2 (event) 00:00:00 02:09:00 Medica Branch Sex Assigned At [birth year] [facility] [place] 00:00:00 00:00:00 Medical Branch Smoking Status Start Date Stop Date Source Tobacco smoking consumption [facility] Branch Medications Ordered Filled Start Stop Current Ordering Indication Dosage Frequency Signature Comments Components Source Medication Medication Date Date Medication? Clinician (SIG) Name Name phenazopyri 2021-08 Yes [id number] 200mg Take 1 Univers dine 200 mg 1-24 tablet by ity of tablet 00:00: mouth in [place] 00 the Medical morning Branch and 1 tablet at noon and 1 tablet in the evening. No known 2021-08 No No known Unive rs medications 1-14 medication it y of 11:11: s [place] 28 [facility] [employer] metoprolol 5mg 5 mg, Slow Univers (LOPRESSOR) 03-09 IV Push, ity of injection 5 01:45: 01:51 [place]CE[place] :00 dose, On [facility] [place] 03/08/22 Branch at 2044, RENET[place] Vital Signs Vital Name Observation Time Observation Value Comments Source Systolic blood 2022-06-28 09:39:00 131 mm[Hg] Univer sity of pressure [facility] Diastolic blood 2022-06-28 09:39:00 80 mm[Hg] [facility] Heart rate 2022-06-28 09:39:00 70 /min [facility] Respiratory rate 2022-06-28 09:39:00 16 /min [facility] Oxygen saturation in 2022-06-28 09:39:00 99 /min [facility] Arterial blood by [facility] Pulse oximetry Branch Body temperature 2022-06-28 08:10:00 36.56 Brandy [facility] Body height 2022-06-28 08:10:[address] [facility] Body weight 2022-06-28 08:10:[address] [facility] BMI 2022-06-28 08:10:00 33.28 kg/m2 [facility] Systolic blood 2022-06-18 17:02:00 146 mm[Hg] Univer sity of pressure [place] [facility] Diastolic blood 2022-06-18 17:02:00 99 mm[Hg] Unive rsity of pressure [facility] Heart rate 2022-06-18 17:02:00 79 /min Universi ty of [facility] Body temperature 2022-06-18 17:02:00 36.67 Brandy [facility] ersity of [facility] Respiratory rate 2022-06-18 17:02:00 18 /min Univ ersity [facility] Body height 2022-06-18 17:02:00 167.6 cm Universi ty of [facility] Body weight 2022-06-18 17:02:00 86.183 kg Universi ty of [facility] BMI 2022-06-18 17:02:00 30.67 kg/m2 Universi ty [facility] Oxygen saturation in 2022-06-18 17:02:00 99 /min University of Arterial blood by [facility] Pulse oximetry Branch Systolic blood 2022-03-09 02:33:00 144 mm[Hg] Univer sity of pressure [place] [facility] Diastolic blood 2022-03-09 02:33:00 91 mm[Hg] Unive rsity of pressure [facility] Heart rate 2022-03-09 02:33:00 70 /min Universi ty [facility] Oxygen saturation in 2022-03-09 02:33:00 99 /min University of Arterial blood by [facility] Pulse oximetry Branch Respiratory rate 2022-03-09 02:00:00 11 /min Univ ersity [facility] Body temperature 2022-03-09 01:38:00 36.33 Brandy [facility] Body height 2022-03-09 01:38:00 167.6 cm Universi ty of [facility] Body weight 2022-03-09 01:38:00 88.451 kg Universi ty of [facility] BMI 2022-03-09 01:38:00 31.47 kg/m2 Universi ty [facility] Procedures Procedure Date / Time Performing Clinician Source Performed POCT TEST 2022-06-28 08:35:00 Messi Gamez [facility] URINALYSIS 2022-06-28 08:32:00 Messi Gamez [facility] NOTICE OF PRIVACY 2022-06-28 08:02:59 Doctor Unassigned, No [facility] CONSENT/REFUSAL FOR 2022-06-28 08:02:31 Doctor Unassigned, No Un [facility] [place] DIAGNOSIS AND Name [facility] TREATMENT XR FOOT 3+ VW 2022-06-18 17:25:44 Mi Garcia [facility] CONSENT/REFUSAL FOR 2022-06-18 16:58:55 Doctor Unassigned, No Un [facility] [place] DIAGNOSIS AND Name Medical Branch TREATMENT NOTICE OF PRIVACY 2022-06-18 16:56:44 Doctor Unassigned, No [facility] TROPONIN I 2022-03-09 01:47:00 Renaldo [facility] COMP. METABOLIC PANEL 2022-03-09 01:47:00 Olivia Macario [facility] ([id number]) [facility] CBC WITH DIFF 2022-03-09 01:47:00 [facility]aldo [facility] N-TERMINAL PRO-BNP 2022-03-09 01:47:00 Olivia Macario [facility] Encounters Start End Encounter Admission Attending Care Care Encounter Source Date/Time Date/Time Type Type Clinicians Facility Department ID 2022-06-28 2022-06-28 Emergency X VERA, [facility] ERT [id number] Univers 02:16:00 03:42:00 MESSI neal [facility] 2022-06-28 2022-06-28 Emergency [place], [facility] [id number] Univers 02:16:00 03:42:00 Messi TOBAR [id number] adalgisa [facility] [id number] [facility] [id number] [facility] 084 Branch 2022-06-18 2022-06-18 Emergency X AUFDERHEIDE [facility] ERT [id number] Univers 11:03:00 12:57:00 MI [facility] 2022-06-18 2022-06-18 [facility] [id number] Univers 11:03:00 12:57:00 , Mi AMADOU [id number] i ty of Myrna [facility] [id number] [facility] [phone] [address] 2022-06-18 2022-06-18 Orders Doctor KAZ [id number] Univers 00:00:00 00:00:00 Only Unassigned, LEANNE [id number] ity of Shiro [facility] 4.2.7.2.686 [facility] [id number] [place] [address] Branch 2022-03-08 2022-03-08 Emergency X RENALDO, [facility] ERT [id number] Univers 20:32:00 21:39:00 OLIVIA diana [facility] 2022-03-08 2022-03-08 Emergency [facility] [id number] Univers 20:32:00 21:39:00 Olivia TOBAR [id number] i ty of ETHAN 4.2.7.2.686 [facility] [id number] [address] Results Test Description Test Time Test Comments Results Result Comments Source POCT TEST 2022-06-28 08:35:00 Test Item Value Reference Range Interpretation Comme nts POCT PREG (test code = 1605) Negative On board controls acceptable with C Line (test code = 3574) Present POCT PREG LOT # (test code = 3575) [facility] [id number] POCT PREG TEST DATE (test code = 3576) 11/03/2023 Lab Interpretation (test code = 45469-4) [id number] 02:24:28 Test Item Value Reference Interpretation Comments Range TROPONIN I (test 0.001 ng/mL See_Comment [Automated code = 3708389276) message] The system which generated this result [...] biotin. Lab Interpretation Normal (test code = 28155-3) [facility] [id number] 02:20:06 Test Item Value Reference Range Interpretation Comments NT-proBNP (test code 39 pg/mL See_Comment [Autom ated = 6331070600) message] The system which generated this result transmitted reference range : <=125. The reference range was not used to interpret this result as normal/abnormal . DEIRDRE (test code = DEIRDRE) Biotin has been reported to cause a negative bias, interpret results relative to patient's use of biotin. Lab Interpretation Normal (test code = 13029-4) [facility] (23186)2022-03-09 02:11:26 Test Item Value Reference Range Interpretation Comments NA (test code = 138 mmol/L 135-145 1407305172) K (test code = 3.3 mmol/L 3.5-5 L 2806256283) CL (test code = 99 mmol/L 98-108 8464318321) CO2 TOTAL (test code = 29 mmol/L 23-31 5837208692) AGAP (test code = 2-16 0598185912) BUN (test code = 10 mg/dL 7-23 4867279971) GLUCOSE (test code = 116 mg/dL 70-110 H 0788703329) CREATININE (test code = 0.55 mg/dL 0.5-1.04 8608781206) TOTAL BILI (test code = 0.4 mg/dL 0.1-1.1 5168356506) CALCIUM (test code = 9.3 mg/dL 8.6-10.6 2071458738) T PROTEIN (test code = 7.9 g/dL 6.3-8.2 9983392939) ALBUMIN (test code = 4.5 g/dL 3.5-5 7399795365) ALK PHOS (test code = 65 U/L 34-122 2232190645) ALTv (test code = 17 U/L 5-35 2-6) AST(SGOT) (test code = 21 U/L 13-40 9887178804) eGFR (test code = mL/min/1.73m2 9599623301) DEIRDRE (test code = DEIRDRE) Association of [...] tests). Lab Interpretation Abnormal (test code = 73470-3) [facility] WITH [id number] 01:55:46 Test Item Value Reference Range Interpretation Comments WBC (test code = See_Comment [Automated 1285-2) message] The sy stem which generated this [...] RDW-SD (test code = 41.9 fL 39-49.9 09921-5) RDW-CV (test code = 13.4 % 12-15.5 788-0) PLT (test code = See_Comment [Automated 777-3) message] The sy stem which generated this result transmitted reference range : 166 - 358 10*3/ ?L. The reference r kaleb was not used to interpret this result as normal/abnormal . MPV (test code = 8.9 fL 9.5-12.9 L 12297-1) NRBC/100 WBC (test See_Comment [Automat ed code = 6701809261) message] The system which generated this result transmitted reference range : 0.0 - 10.0 /100 WBCs. The refer ence range was not u sed to interpret th is result as normal/abnormal . NRBC x10^3 (test code See_Comment [Auto mated = 4674225323) message] The s ystem which generated this result transmitted reference range : 10*3/?L. The reference range was not used to interpret this result as normal/abnormal . GRAN MAT (NEUT) % 61.0 % (test code = 770-8) IMM GRAN % (test code 0.20 % = 9011903398) LYMPH % (test code = 30.7 % 736-9) MONO % (test code = 7.0 % 5905-5) EOS % (test code = 0.5 % 713-8) BASO % (test code = 0.6 % 706-2) GRAN MAT x10^3(ANC) 5.26 10*3/uL 1.88-7.09 (test code = 0763084524) IMM GRAN x10^3 (test 0-0.06 code = 6648591446) LYMPH x10^3 (test code 2.64 10*3/uL 1.32-3.29 = 731-0) MONO x10^3 (test code 0.60 10*3/uL 0.33-0.92 = 742-7) EOS x10^3 (test code = 0.04 10*3/uL 0.03-0.39 711-2) BASO x10^3 (test code 0.05 10*3/uL 0.01-0.07 = 704-7) Lab Interpretation Abnormal (test code = 00144-0) [facility]"
[2022-07-02 20:16] LABS: Urine Blood Negative (Negative); Urine Glucose Negative (Negative); Urine Protein Negative (Negative); Urine pH 7.5 (5.0-7.0)
[2022-07-02 20:23] LABS: Urine Mucus Slight /HPF (None Seen); Urine RBC <5 /HPF (None Seen)
--- NOTE | 2022-07-02 20:38 | EDPHYS ---
Physician Documentation [facility] Name: Rosetta Aranda Age: 41 yrs Sex: Female : 1980 Arrival Date: 07/02/2022 Time: 18:12 Bed 11 Private MD: ED Physician Reynaldo Parada HPI: 07/02 20:36 This 41 yrs old Female presents to ER via Ambulatory with complaints of kb Urinary Problem, Back Pain. 20:36 The patient presents with urinary symptoms, dysuria, frequency. Onset: The kb symptoms/episode began/occurred 10 day(s) ago. Modifying factors: The symptoms are alleviated by nothing, the symptoms are aggravated by nothing. Associated signs and symptoms: Pertinent positives: dysuria, nausea, urinary frequency. Severity of symptoms: At their worst the symptoms were mild, in the emergency department the symptoms are unchanged. The patient has experienced similar episodes in the past, a few times. The patient has not recently seen a physician. Pt reports she developed dysuria and frequency 10 days ago that resolved but now has nausea and bilateral flank pain. Denies fever denies abdominal pain. Historical: - Allergies: 18:47 LITHIUM DERIVITIVES; iw - PMHx: 18:47 Anxiety; Bipolar disorder; Fibromyalgia; Hypertension; iw - PSHx: 18:47 "tubal ligation"; iw - Immunization history:: Client reports receiving the 2nd dose of the Covid vaccine. - Social history:: Smoking status: Patient denies any tobacco usage or history of. ROS: 20:35 Constitutional: Negative for fever, chills, and weight loss. kb 20:35 Abdomen/GI: Positive for nausea. 20:35 : Positive for urinary symptoms, flank pain, urinary frequency, burning with urination. 20:35 All other systems are negative. Exam: 20:35 Constitutional: This is a well developed, well nourished patient who is awake, alert, kb and in no acute distress. Head/Face: Normocephalic, atraumatic. ENT: Moist Mucous membranes Cardiovascular: Regular rate and rhythm with a normal S1 and S2. No gallops, murmurs, or rubs. No pulse deficits. Respiratory: Respirations even and unlabored. No increased work of breathing. Talking in full sentences Abdomen/GI: Soft, non-tender. No distention Skin: Warm, dry with normal turgor. Normal color. MS/ Extremity: Pulses equal, no cyanosis. Neurovascular intact. Full, normal range of motion. Neuro: Awake and alert, GCS 15, oriented to person, place, time, and situation. Moves all extremities. Normal gait. Psych: Awake, alert, with orientation to person, place and time. Behavior, mood, and affect are within normal limits. 20:35 Back: CVA tenderness, that is mild, is noted bilaterally. Vital Signs: 18:48 BP 140 / 72; Pulse 72; Resp 18; Temp 98.9; Pulse Ox 99% on R/A; iw 20:50 BP 134 / 76; Pulse 76; Resp 18; Pulse Ox 100% on R/A; em6 MDM: 18:52 Patient medically screened. kb 20:34 Data reviewed: vital signs, nurses notes. Data interpreted: Pulse oximetry: on room air kb is 99 %. Interpretation: normal. Counseling: I had a detailed discussion with the patient and/or guardian regarding: the historical points, exam findings, and any diagnostic results supporting the discharge/admit diagnosis, lab results, the need for outpatient follow up, a family practitioner, to return to the emergency department if symptoms worsen or persist or if there are any questions or concerns that arise at home. 20:49 ED course: Pt states she did just start Zoloft on Saturday so that may be what is kb causing her symptoms. Pt will follow up with PCP. 07/02 18:52 Order name: Urine Culture 07/02 18:52 Order name: Urine Microscopic Only; Complete Time: 20:32 kb 07/02 18:52 Order name: Urine Dipstick-Ancillary (obtain specimen); Complete Time: 19:45 kb 07/02 18:52 Order name: Urine Test (obtain specimen); Complete Time: 19:46 kb 07/02 20:16 Order name: Urine Dipstick-Ancillary; Complete Time: 20:32 EDMS Administered Medications: No medications were administered Disposition Summary: 07/02/22 20:38 Discharge Ordered Location: Home kb Condition: Stable kb Diagnosis - Low back pain kb Followup: kb - With: Emergency Department - When: As needed - Reason: Worsening of condition Followup: kb - With: Private Physician - When: 2 - 3 days - Reason: Recheck today's complaints, Continuance of care, Re-evaluation by your physician Discharge Instructions: - Discharge Summary Sheet kb - Musculoskeletal Pain kb - Flank Pain, Adult, [id number] kb Forms: - Medication Reconciliation Form kb - Thank You Letter kb - Antibiotic Education kb - Prescription Opioid Use kb Prescriptions: - Diclofenac Sodium 75 mg Oral tablet,delayed release (DR/EC) - take 1 tablet by ORAL route 2 times per day As needed; 30 tablet; Refills: 0, kb Product Selection Permitted Addendum: 07/06/2022 02:39 Co-signature as Attending Physician, Reynaldo GIBSON was immediately available onsite m s3 in the emergency department for consultation in the care of the patient. Signatures: Dispatcher [employer] EDMS Angeline Terrell, FOCUSER-C FOCUSER-Velma Ang, RN Reynaldo Lezama DO DO ms3 Mary Ibanez RN RN em6
--- NOTE | 2022-07-02 20:38 | ER ---
Nurse's Notes [facility] Name: Rosetta Aranda Age: 41 yrs Sex: Female : 1980 Arrival Date: 07/02/2022 Time: 18:12 Bed 11 Private MD: Diagnosis: Low back pain Presentation: 07/02 18:48 Chief complaint: Patient states: has been having UTI symptoms since the , it went iw away and now I fell nauseous and have pain in my back. Coronavirus screen: At this time, the client does not indicate any symptoms associated with coronavirus-19. Ebola Screen: Patient negative for fever greater than or equal to 101.5 degrees Fahrenheit, and additional compatible Ebola Virus Disease symptoms Patient denies exposure to infectious person. Patient denies travel to an Ebola-affected area in the 21 days before illness onset. No symptoms or risks identified at this time. Initial Sepsis Screen: Does the patient meet any 2 criteria? No. Patient's initial sepsis screen is negative. Does the patient have a suspected source of infection? No. Patient's initial sepsis screen is negative. Risk Assessment: Do you want to hurt yourself or someone else? Patient reports no desire to harm self or others. Onset of symptoms was June 22, 2022. 18:48 Method Of Arrival: Ambulatory iw 18:48 Acuity: TYREE 3 iw Historical: - Allergies: 18:47 LITHIUM DERIVITIVES; iw - PMHx: 18:47 Anxiety; Bipolar disorder; Fibromyalgia; Hypertension; iw - PSHx: 18:47 "tubal ligation"; iw - Immunization history:: Client reports receiving the 2nd dose of the Covid vaccine. - Social history:: Smoking status: Patient denies any tobacco usage or history of. Screenin:35 Abuse screen: Denies threats or abuse. Nutritional screening: No deficits noted. em6 Tuberculosis screening: No symptoms or risk factors identified. Fall Risk Total Farnsworth Fall Scale indicates No Risk (0-24 pts). Assessment: 20:35 General: Appears in no apparent distress. Behavior is cooperative. Pain: Complains of em6 pain in back Pain does not radiate. Pain currently is 4 out of 10 on a pain scale. Quality of pain is described as sharp. Neuro: Level of Consciousness is awake, alert, obeys commands, Oriented to person, place, time, situation. Cardiovascular: Patient's skin is warm and dry. Respiratory: Airway is patent Respiratory effort is even, unlabored, Respiratory pattern is regular, symmetrical, Breath sounds are clear bilaterally. GI: Abdomen is non-distended, Bowel sounds present X 4 quads. Abd is soft and non tender X 4 quads. Reports nausea, vomiting. : Reports burning with urination. EENT: No signs and/or symptoms were reported regarding the EENT system. Derm: No signs and/or symptoms reported regarding the dermatologic system. Musculoskeletal: Circulation, motion, and sensation intact. Vital Signs: 18:48 BP 140 / 72; Pulse 72; Resp 18; Temp 98.9; Pulse Ox 99% on R/A; iw 20:50 BP 134 / 76; Pulse 76; Resp 18; Pulse Ox 100% on R/A; em6 ED Course: 18:12 Patient arrived in ED. mr 18:36 Angeline Terrell FNP-C is [facility]. kb 18:36 Reynaldo Parada DO is Attending Physician. kb 18:48 Arm band placed on. iw 18:49 Triage completed. iw 20:20 Urine Microscopic Only Sent. rv1 20:20 Urine Culture Sent. rv1 20:28 Mary Ibanez, RN is Primary Nurse. em6 20:35 Bed in low position. Call light in reach. Side rails up X2. Pulse ox on. NIBP on. Warm em6 blanket given. 20:51 No provider procedures requiring assistance completed. Patient did not have IV access em6 during this emergency room visit. Administered Medications: No medications were administered Medication: 20:51 VIS not applicable for this client. em6 Outcome: 20:38 Discharge ordered by MD. kb 20:51 Discharged to home ambulatory. em6 20:51 Condition: stable 20:51 Discharge instructions given to patient, Instructed on discharge instructions, follow up and referral plans. medication usage, Demonstrated understanding of instructions, follow-up care, medications, Prescriptions given X 1. 20:52 Patient left the ED. em6 Signatures: Angeline Terrell FNP-C FNP-Jose Maryann Murphy Velma Lucio, CELIA RN iw Mary Ibanez RN RN em6 Jennifer Myers rv1
[2022-07-02 21:57] VITALS: TEMP 98.9
[2022-07-02 22:02] VITALS: BP 134/76; O2SAT 100
== END 2022-07-02 20:52 | disposition home or self-care (01) ==
LOC: ER 18:09
DX: M54.50 Low back pain, unspecified (principal); I10 Essential (primary) hypertension; Z88.8 Allergy status to other drugs, medicaments and biological substances
CPT/HCPCS: 81003; 81015; 87086; 87088; 99283